=== PATIENT | female | born 1935 | race Caucasian/White ===

== ENCOUNTER 2017-06-02 09:46 | Inpatient (IN) | payer MEDICARE, OTHER, SELFPAY ==
[2017-06-02] VITALS (8 sets, daily range): BP systolic 137–155; BP diastolic 62–77; PULSE 69–84; RESP 16–22; TEMP 36.4–36.9; O2SAT 88–97; BMI 27.3; BMI 26.8
--- NOTE | 2017-06-02 10:10 | RAD_ITS ---
STUDY: X-RAY CHEST REASON FOR EXAM: Female, 82 years old. Shortness of breath. TECHNIQUE: Single AP portable view of the chest. COMPARISON: Comparison is made with prior study dated January 01, 2017. FINDINGS: EKG electrodes are seen. Mild increased markings in the right midlung suggestive of scarring. This is unchanged. There is no demonstrated pleural abnormality. Normal size heart. Ectasia of the vessels in the right side of the neck. Normal visualized pulmonary arteries. There is atherosclerotic calcification of the aortic arch with tortuosity. There are diffuse degenerative changes of the visualized thoracic spine. Stable calcifications overlying the proximal right humerus. There is no demonstrated abnormality of the visualized soft tissue structures of the upper abdomen. RAD/Chest 1 View (Portable) IMPRESSION: Stable examination. No acute abnormality is seen. Electronically Signed: Law Harper MD at 10:47 EST Tel [phone], Service support ,
--- NOTE | 2017-06-02 10:11 | EKG12_ITS ---
Test Reason : WEAKNESS Blood Pressure : / mmHG Vent. Rate : 066 BPM Atrial Rate : 066 BPM P-R Int : 154 ms QRS Dur : 076 ms QT Int : 464 ms P-R-T Axes : 021 -20 034 degrees QTc Int : 486 ms Normal sinus rhythm Normal ECG Confirmed by EARL STERN, SHADY ([id number]), senior technical editor CARLYLE ZAPATA ([id number] on 06/06/2017 3:54:53 PM Referred By: AGGIE Confirmed By:SHADY ELLIOTT MD
[2017-06-02 10:38] LABS: Absolute Lymphocyte Count 1.81 X10^3/ul (0.83-4.51); Absolute Neutrophil Count 13.4 X10^3/uL (2.0-7.7); Basophil# 0.04 X10^3/uL; Basophil% 0.2 % (0-1); Differential Indicated SCAN CRITERIA MET; Eosinophils% 6.6 % (0-5); Hematocrit 36.6 % (37-47); Hemoglobin 11.1 g/dl (12.0-15.0); Lymphocyte # 1.81 X10^3/ul (4.0); Mean Corp Hgb Conc 30.3 g/gl (32-36); Mean Corpuscular Hgb 25.8 pg (27.0-32.0); Mean Corpuscular Volume 85.1 fL (81-99); Mean Platelet Vol. 9.8 fl (6.2-12.0); Monocyte# 1.61 X10^3/uL; Monocyte% 8.9 % (0-10); Neutrophil # 13.36 X10^3/uL (2.7-7.7); POSITIVE COUNT NO; POSITIVE DIFFERENTIAL YES; POSITIVE MORPHOLOGY NO; Platelet Count 403 K/mm3 (150-450); RBC Distribution Width CV 14.8 % (11.6-14.6); RBC Distribution Width SD 45.9 fl (35.1-43.9); White Blood Count 18.1 K/mm3 (4.4-11.0)
--- NOTE | 2017-06-02 10:39 | CM.ED ---
CM referred to speak with patient re: SNF vs Home with [facility] and palliative. CM spoke with patient and daughter. Patient states that she was a resident at [facility] from 2016 - March 2017. She was then discharged to home with home health services from [facility] and states she felt she did well with [facility]. I spoke with Gavi at [facility] who confirmed that they will be able to resume care if patient should discharge to home needing home health services. I contacted , Ana Galindo, requesting discussion with family regarding palliative care. Social work will follow-up with the patient and family. Patient states she was pleased with her care at [facility] and would be agreeable to readmission there, should her condition require. Patient did state that she would not be able to self-pay for SNF placement. Care team updated. Test results are pending and care plan is undetermined at this time. CM will continue to assist with discharge needs as plan develops. Kiah BURDICK, RN HINA
[2017-06-02 10:41] LABS: Bacteria 0 SEEN /hpf (None Seen); Mucous, Urine 0 SEEN /hpf (<or=2+)
[2017-06-02 10:43] LABS: Color, Urine Yellow (Yellow); Glucose, Dipstick Normal (Normal); Ketone-Dipstick Negative (Negative); Leukocyte Esterase-Dipstick 25 /ul (Negative); Nitrite-Dipstick Negative (Negative); Occult Blood-Urine 150 /ul (Negative); Protein-Dipstick 30 mg/dl (Negative); Urine Bilirubin Dipstick Negative (Negative); Urine Clarity Sl. Cloudy (Clear); Urine Urobilinogen 1 mg/dl (Normal)
[2017-06-02 10:48] LABS: Anion Gap 10 (5-15); BUN 13 mg/dL (7-18); BUN/Creat Ratio 13.1 RATIO (10-20); Calcium,Total 8.2 mg/dL (8.5-10.1); Chloride 102 mmol/L (98-107); Creatinine, Serum 0.99 mg/dL (0.55-1.02); EST Glomerular Filtration Rate 57 mL/min (>60); Est Glom Filt Rate - Afr Amer 69 mL/min (>60); Estimated Creatinine Clearance 34.65 ml/min; Glucose 135 mg/dL (70-110); Potassium 3.9 mmol/L (3.5-5.1); Sodium Level 138 mmol/L (136-145)
[2017-06-02 10:50] LABS: Red Blood Cells-Urine 10-25 SEEN /hpf (0-5); Squamous Epithelial Cells - UA 0-5 SEEN /hpf (5-10); White Blood Cells 0-5 SEEN /hpf (0-5)
--- NOTE | 2017-06-02 11:24 | US_ITS ---
STUDY: ABDOMINAL ULTRASOUND - RIGHT UPPER QUADRANT REASON FOR VISIT: Female, 82 years old. Abdominal pain. TECHNIQUE: Ultrasound evaluation of the right upper quadrant was performed with real-time and static vazquez-scale imaging. TECHNICAL QUALITY: Adequate. COMPARISON: Comparison is made with prior examination dated January 06, 2017. FINDINGS: Liver: The liver measures 13.5 cm. There is normal echogenicity of the liver. The bile ducts are within normal limits. There is hepatic color flow. The direction of portal flow is hepatopetal. There is no demonstrated mass lesion. Gallbladder: Normal distended gallbladder. The gallbladder wall is slightly thickened and measures 3.2 mm. There is a negative sonographic Ward's sign. There is no pericholecystic fluid. There is a solitary echogenic gallstone within the gallbladder. Common Bile Duct (C.B.D.): The common bile duct measures 5.2 mm. Pancreas: There is nonvisualization of the pancreas due to overlying bowel gas. Right Kidney: Normal size of the right kidney. The right kidney measures 9.6 cm x 4.5 cm x 4.3 cm. Normal renal cortex. The right cortex measures 1.1 cm. There is no demonstrated renal mass or cyst. There is no right hydronephrosis. US/Gallbladder IMPRESSION: Cholelithiasis. Mild gallbladder wall thickening. Electronically Signed: Law Harper MD at 12:41 EST Tel [phone], Service support ,
[2017-06-02 11:49] LABS: AST(SGOT) 15 U/L (15-37); Alanine Aminotransfer ALT/SGPT 12 U/L (13-56); Alkaline Phosphatase 154 U/L (45-117); Bilirubin, Direct 0.14 mg/dL (0.00-0.30); Globulin 3.4 g/dL (2.2-4.2); Lipase 114 U/L (73-393); Protein, Total 5.4 g/dL (6.4-8.2)
--- NOTE | 2017-06-02 15:22 | CT_ITS ---
STUDY: CT BRAIN WITHOUT CONTRAST REASON FOR EXAM: Female, 82 years old. Hypoxia, general weakness, chronic cough, Afib. Hx breast cancer with right mastectomy, hypertension. Hx CVA-brain stem aneurysm RADIATION DOSAGE (If Supplied By Facility): CTDIvol = ( 44.99 ) mGy, DLP = ( 779.24 ) mGycm TECHNIQUE: Transaxial CT imaging of the brain was performed without administration of intravenous contrast material. COMPARISON: None. FINDINGS: Normal soft tissue structures. Normal calvarium. There are calcifications noted in the distal vertebral arteries. There are calcifications noted in the cavernous carotid arteries. This is consistent for atherosclerotic disease. There is mild cerebral atrophy with widening of the extra-axial spaces and ventricular dilatation. There are areas of decreased attenuation within the white matter tracts of the supratentorial brain, consistent with microvascular disease changes. Normal basal ganglia and thalami. Normal brainstem. There is mild cerebellar atrophy. There is no intracranial hemorrhage. There are no findings of an acute ischemic infarction. There is a mucous retention cyst and/or polyp of the right maxillary sinus. CT/Brain/Head without Contrast IMPRESSION: Chronic involutional changes of the brain. There are no acute findings. Electronically Signed: Tyler Christiansen MD at 16:31 EST , Service support ,
--- NOTE | 2017-06-02 15:23 | CT_ITS ---
EXAM: CT SPINE - CERVICAL WITHOUT IV REASON FOR EXAM: Female, 82 years old. Hypoxia, general weakness, chronic cough, Afib. Hx breast cancer with right mastectomy, hypertension. Hx CVA-brain stem aneurysm RADIATION DOSAGE (If Supplied By Facility): CTDIvol = ( 21.80 ) mGy, DLP = ( 439.52 ) mGycm TECHNIQUE: Multiplanar images were obtained of the cervical spine. IV contrast was not utilized. COMPARISON: None. FINDINGS: The vertebral bodies do maintain their height. The odontoid process is intact. There is no anterolisthesis or fracture. No pre-vertebral soft tissue swelling is seen. The intravertebral disc height is lost. There are scattered lymph nodes in the neck. There are degenerative changes of the osseous structures. There is bilateral facet arthropathy. There are scattered levels of foraminal stenosis. The thyroid is heterogenous. It contains nodules. This should be further evaluated with ultrasound. This can be performed as an outpatient. There are atherosclerotic vascular calcifications. CT/Spine Cervical without Contras IMPRESSION: Degenerative changes of the cervical spine. No acute abnormality of the spine. The thyroid is heterogenous. It contains nodules. This should be further evaluated with ultrasound. This can be performed as an outpatient. Electronically Signed: Tyler Christiansen MD at 16:34 EST , Service support ,
--- NOTE | 2017-06-02 15:25 | HP.PCM_ITS ---
Problem List (1) Acute hypoxic respiratory failure Status: Acute (2) Headache and neck pain Status: Acute (3) Weakness Status: Acute (4) Multiple falls Status: Chronic (5) Hypoxemia Status: Acute (6) Lung nodule seen on imaging study Status: Chronic Comment: NEEDS WORKUP (7) Anemia Status: Chronic Comment: THIS WAS NOT WORKED UP DURING HOSPITALIZATION (8) NSTEMI (non-ST elevated myocardial infarction) Status: Chronic (9) Atrial fibrillation Status: Chronic (10) HTN (hypertension) Status: Chronic (11) History of breast cancer Status: Chronic (12) Syncope Status: Chronic History of Present Illness Date of Admission: 06/02/17 Chief Complaint: Generalized weakness The patient is a 82 year old F with multiple comorbidities as listed above came to ER with generalized weakness for 2-3 weeks. As per the patient, she was recently started on new HeartMate, midodrine and she has been feeling lightheaded, weak and diaphoretic. She gets easily lightheaded on standing and walking up and gets to spontaneously resolved after a few minutes. Denies any recent fall but last time she was admitted in December 2016 for multiple falls at home. She also complained of nonspecific symptoms including headache and neck pain and right for 3 days. She has about once or twice a day labored breathing with shortness of breath and chronic cough. She denies alteration of bowel habit or lower urinary tract symptoms. In ED, she was found hypoxic, 88% on room air, tachypneic 20/min but no tachycardia. No fever. She has some nausea but denies any fever, sore throat or URI's. Basic lab work in the ER shows leukocytosis 18,000 with left shift. Alkaline phosphatase 154 ALT 12. UA is negative for pyuria and nitrite. Past Medical History Past Medical History (Chronic Problems): Chronic Problems Multiple falls (Chronic) Lung nodule seen on imaging study (Chronic) NEEDS WORKUP Anemia (Chronic) THIS WAS NOT WORKED UP DURING HOSPITALIZATION NSTEMI (non-ST elevated myocardial infarction) (Chronic) Atrial fibrillation (Chronic) HTN (hypertension) (Chronic) History of breast cancer (Chronic) Syncope (Chronic) Allergies No Known Allergies Allergy (Verified 06/02/17 09:51) Home Medications: Ambulatory Orders Medication Instructions Recorded Aspirin [Aspirin, Baby] 81 mg PO DAILY@0800 12/22/16 Gabapentin [Neurontin] 300 mg PO TID 12/22/16 Metoprolol Tartrate 75 mg PO BID 12/22/16 Atorvastatin Calcium 40 mg PO QHS 01/06/17 Ensure Enlive 120 ml PO 4X/DAY 01/10/17 Ergocalciferol [Vitamin D] 50,000 unit PO Q7D capsule 01/10/17 Amlodipine [Norvasc] 5 mg PO DAILY 06/02/17 Naproxen Sodium [Aleve] 220 mg PO Q12H PRN PRN 06/02/17 Surgical History: mastectomy Smoking Status: Never smoker - *Family History Sibling History Items: - - brother with cabg Paternal History Items: - - mi Maternal History Items: - - cerebral hem Review of Systems Constitutional: Reports: Malaise, Weakness, Fatigue. Denies: Fever Eyes: Denies: Blurred vision, Double vision HEENT: Denies: Sinus Congestion, Sinus Drainage Cardiovascular: Denies: Chest Pain, Palpitations Respiratory: Reports: Cough, Shortness of breath upon exertion. Denies: Shortness of breath at rest, Sputum production Gastrointestinal: Denies: Abdominal Pain, Constipation, Nausea, Vomiting Genitourinary: Denies: Dysuria Musculoskeletal: Denies: Joint Pain, Joint Tenderness Skin: Denies: Rash, Wounds Neurological: Denies: Numbness, Tingling, Focal weakness Psychiatric: Denies: Anxiety, Depression, Homicidal Ideations, Suicidal Ideations Hematologic/ Lymphatic: Denies: Easy Bruising, Easy Bleeding VTE Information - Inpt Only VTE Present on Admission: No VTE Mechan Device Prophylaxis: SCD's VTE Pharm Prophylaxis ordered?: Yes Patient Problems: Active and Suspected Problems Acute hypoxic respiratory failure (Acute) Headache and neck pain (Acute) - Physical Exam General: Alert, Oriented x3, Cooperative HEENT: Atraumatic, PERRLA, EOMI, Normocephalic Oral: Dry Mucosa Neck: Supple, No JVD, Negative Carotid Bruits Lungs: No rhonchi, No wheeze, No rales, Diminished Cardiovascular: Regular rate, Regular Rhythm, Normal S1, Normal S2, No murmurs Abdomen: Bowel Sounds Present, Soft, Non Tender, Non-Distended Extremities: Capillary Refill Less than 3 Seconds, Edema Skin: No rashes, No breakdown Musculoskeletal: No Tenderness to Palpation of Joints or Extremities, Arthritic Changes, Muscle Wasting Neurological: Cranial nerves II-XII grossly intact, Neuro grossly intact, - - No neck rigidity. No sternomastoid or neck muscle tenderness Psych/Mental Status: Normal Affect, Appropriate Vital Signs Temp Pulse Resp BP Pulse Ox 98.0 F 74 22 H 155/69 H 97 06/02/17 09:47 06/02/17 14:17 06/02/17 14:17 06/02/17 14:17 06/02/17 14:17 Assessment/Plan Active and Suspected Problems Acute hypoxic respiratory failure (Acute) Headache and neck pain (Acute) The patient is a 82 year old F with multiple comorbidities as listed above came to ER with generalized weakness for 2-3 weeks. As per the patient, she was recently started on new HeartMate, midodrine and she has been feeling lightheaded, weak and diaphoretic. She gets easily lightheaded on standing and walking up and gets to spontaneously resolved after a few minutes. Denies any recent fall but last time she was admitted in December 2016 for multiple falls at home. She also complained of nonspecific symptoms including headache and neck pain and right for 3 days. She has about once or twice a day labored breathing with shortness of breath and chronic cough. She denies alteration of bowel habit or lower urinary tract symptoms. In ED, she was found hypoxic, 88% on room air, tachypneic 20/min but no tachycardia. No fever. She has some nausea but denies any fever, sore throat or URI's. Basic lab work in the ER shows leukocytosis 18,000 with left shift. Alkaline phosphatase 154 ALT 12. UA is negative for pyuria and nitrite. 1. Acute hypoxic respiratory failure, etiology unclear possible to viral syndrome/acute bronchitis: [facility]. The patient is a high risk of DVT/PE and has not been moving much at home. CT angiogram of chest ordered to rule out PE. Incentive spirometry, bronchodilator and supportive treatment. Lactic acid ordered. During last admission it was also documented that patient had hypoxia with source finding but it was resolved. 2. SIRS (leukocytosis, tachypnea and hypoxia) probably due to viral flulike syndrome: Supportive treatment. Respiratory panel ordered. 3. Headache and neck pain and generalized weakness: Patient does not have neck rigidity. Low suspicion for meningitis. CT head with C-spine ordered. Patient denies any history of migraine or chronic headache. PT and OT ordered. 4. Other chronic comorbidities include recent history of recurrent fall, non- STEMI with coronary artery disease, right lower lung mass, paroxysmal A. fib, mild aortic aneurysm, and hypertension.: Multiple comorbidities complicates the present care. Home medication reconciliation done. Code Visit Inpatient E&M: 01313 Init Hosp L3
--- NOTE | 2017-06-02 15:32 | CT_ITS ---
STUDY: CTA CHEST REASON FOR EXAM: Female, 82 years old. Hypoxia, general weakness, chronic cough, Afib. Hx breast cancer with right mastectomy, hypertension. Hx CVA-brain stem aneurysm RADIATION DOSAGE (If Supplied By Facility): CTDIvol = ( 15.96 ) mGy, DLP = ( 507.37 ) mGycm TECHNIQUE: The examination was performed with the intravenous administration of 75mL ml of Isovue 370 contrast material. Post-processing of the angiographic images was performed, with multiplanar reformation and 3D reconstruction. Individualized dose optimization techniques were used for this CT. COMPARISON: January 06, 2017 FINDINGS: There is no pneumothorax. There is a right 3.8 mm right middle lobe nodule. There is a right 14 mm lower lobe nodule. Stable lingular nodule. There are small bilateral pleural effusions. There are calcifications of the coronary arteries. 45 mm aneurysmal dilation of the ascending thoracic aorta.Right mastectomy changes. Normal mediastinum. Normal hilar regions. Normal pulmonary arteries. There is atherosclerotic calcification of the aortic arch with tortuosity and elongation of the aortic arch and descending thoracic aorta. There are multi-level degenerative changes of the thoracic spine. There is no demonstrated abnormality of the visualized upper abdomen. CT/CTA Chest W/WO Contrast IMPRESSION: No demonstrated pulmonary embolism or arterial dissection. Small pleural effusions. Stable pulmonary nodules. 45 mm aneurysmal dilation of the ascending thoracic aorta. Electronically Signed: Tyler Christiansen MD at 16:40 EST , Service support ,
--- NOTE | 2017-06-02 16:21 | ED.VISSUMM ---
- ER Visit Summary Date of Service: 06/02/17 Chief Complaint: Weakness History of Present Illness: The patient is a [address] Hearn. She reports that she has had weakness for quite some time. She was in [facility] from December through . States that while she was there she was placed on amiodarone. States that with this she has had generalized weakness. She stopped this medication 3 weeks ago. She reports that she is not having any chest pain or diaphoresis anymore. However, she continues to experience generalized weakness. Patient points of a chronic cough that is unchanged. She does report that she is short of breath once in a while. She denies any fever, chills, abdominal pain, vomiting, diarrhea, or other complaints. Physical Examination: Vitals: Stable. Afebrile. General: Well-nourished and well-developed. Head: Normocephalic atraumatic. Neck: Supple, no lymphadenopathy. No JVD. Nontender. Cardiovascular: Regular rate and rhythm. 2 out of 6 systolic murmur. Respiratory: No respiratory distress. Clear to auscultation bilaterally. Abdominal: Soft, mild right upper quadrant tenderness to palpation, nondistended, normal bowel sounds. No guarding, rebound, or peritoneal signs. Back: Nontender. Extremities: Nontender, no edema. Skin: Normal color, no rash. Neurologic: Alert and oriented ?3. Cranial nerves II through XII are intact. Normal strength and sensation. Psych: Normal affect. Test Results: EKG is sinus at 66 with no acute changes. Is unchanged from last December. Initial troponin is 0.04. UA is normal. LFTs marked for an alk phos of 154, ALT of 12. Her alk phos was 317 431 last December. Her lipase is normal. Chest x-ray shows chronic changes. Right upper quadrant ultrasound shows mild wall thickening at 3.2 mm with no fluid, no Ward's sign, and a normal common bile duct is 5.2 mm. There is one solitary gallstone. Emergency Department Course and Treatment: While in the emergency department the patient was resting in bed and her pulse ox decreased to 88% with a good waveform. At this time I do not have a good explanation for her leukocytosis. She is also hypoxic. She will be admitted to the hospital for further relation and treatment. Treatment Plan: Patient was discussed with Dr. Rodarte and will be admitted. Disposition: Admitted in stable condition. Impression: 1. Generalized weakness. 2. Leukocytosis. 3. Hypoxia. This note was generated with [employer] dictation software. It may contain incorrect words, spelling, and punctuation that were not noted in review of the chart prior to signing ED Disposition - Plan for ED Patient: Disposition: Acute Care Hospital [facility] Chief Complaint: Weakness
--- NOTE | 2017-06-02 16:24 | ED.DCSUM_ITS ---
- ER Visit Summary Date of Service: 06/02/17 Chief Complaint: Weakness History of Present Illness: The patient is a [address] Hearn. She reports that she has had weakness for quite some time. She was in [facility] from December through . States that while she was there she was placed on amiodarone. States that with this she has had generalized weakness. She stopped this medication 3 weeks ago. She reports that she is not having any chest pain or diaphoresis anymore. However, she continues to experience generalized weakness. Patient points of a chronic cough that is unchanged. She does report that she is short of breath once in a while. She denies any fever, chills, abdominal pain, vomiting, diarrhea, or other complaints. Physical Examination: Vitals: Stable. Afebrile. General: Well-nourished and well-developed. Head: Normocephalic atraumatic. Neck: Supple, no lymphadenopathy. No JVD. Nontender. Cardiovascular: Regular rate and rhythm. 2 out of 6 systolic murmur. Respiratory: No respiratory distress. Clear to auscultation bilaterally. Abdominal: Soft, mild right upper quadrant tenderness to palpation, nondistended , normal bowel sounds. No guarding, rebound, or peritoneal signs. Back: Nontender. Extremities: Nontender, no edema. Skin: Normal color, no rash. Neurologic: Alert and oriented ?3. Cranial nerves II through XII are intact. Normal strength and sensation. Psych: Normal affect. Test Results: EKG is sinus at 66 with no acute changes. Is unchanged from last December. Initial troponin is 0.04. UA is normal. LFTs marked for an alk phos of 154, ALT of 12. Her alk phos was 317 431 last December. Her lipase is normal. Chest x-ray shows chronic changes. Right upper quadrant ultrasound shows mild wall thickening at 3.2 mm with no fluid, no Ward's sign, and a normal common bile duct is 5.2 mm. There is one solitary gallstone. Emergency Department Course and Treatment: While in the emergency department the patient was resting in bed and her pulse ox decreased to 88% with a good waveform. At this time I do not have a good explanation for her leukocytosis. She is also hypoxic. She will be admitted to the hospital for further relation and treatment. Treatment Plan: Patient was discussed with Dr. Rodarte and will be admitted. Disposition: Admitted in stable condition. Impression: 1. Generalized weakness. 2. Leukocytosis. 3. Hypoxia. This note was generated with [employer] dictation software. It may contain incorrect words, spelling, and punctuation that were not noted in review of the chart prior to signing ED Disposition - Plan for ED Patient: Disposition: Acute Care Hospital [facility] Chief Complaint: Weakness
[2017-06-02] MEDS: Enoxaparin 40 MG/0.4 ML Syringe SC (16:26)
[2017-06-02] MEDS: Piperacil/Tazobactam 3.375 GM/50 ML ML IV ×2 (16:26→22:42)
[2017-06-02] MEDS: Acetaminophen 325 MG Tablet 650 MG PO (16:29)
[2017-06-02] MEDS: Gabapentin 300 MG Capsule PO (17:52)
[2017-06-02 18:58] LABS: M R Staph aureus DNA By PCR Negative (Negative); Probe Check PASS; Specimen Processing Control PASS
[2017-06-02] MEDS: Metoprolol Tartrate 25 MG Tablet 75 MG PO (19:45)
[2017-06-02] MEDS: Atorvastatin Calcium 40 MG Tablet PO (19:45)
[2017-06-02 20:44] LABS: Reflex Lactate? Y
[2017-06-02 22:26] LABS: Lactic Acid 1.8 mmol/L (0.4-2.0)
[2017-06-03] VITALS (11 sets, daily range): BP systolic 116–135; BP diastolic 57–75; PULSE 69–76; RESP 18–19; TEMP 36.6–36.9; O2SAT 89–98
[2017-06-03] MEDS: Piperacil/Tazobactam 3.375 GM/50 ML ML IV ×2 (05:39→14:01)
--- NOTE | 2017-06-03 07:50 | PCM.PN.HOSP ---
Patient Problems: Active and Suspected Problems Acute hypoxic respiratory failure (Acute) Headache and neck pain (Acute) Subjective: Patient notes vague history of weakness following administration of new cardiac medication several weeks prior but also states that she was in [facility] for ongoing weakness and debilitation and had improved until discharge to home with since then progressively mild decline. She notes additionally ongoing epigastric region discomfort occasionally. She states that she had evaluation of gallbladder prior and recommendation for removal however following workup she was noted to have some form of brain aneurysm and was told she was not a candidate for operative intervention but patient not interested in cholecystostomy tube. Patient denies fevers, chills, nausea, emesis, chest pain or worsened or recurrent dyspnea. Objective: Physical Examination: General: awake, alert, oriented x 3 and cooperative, seated upright in bed in no apparent distress, mildly irritable. Skin: normal color, turgor, no icterus, cyanosis. HEENT: AT/NC, EOMI, PERRLA, MMM. Lungs: Diminished bases, mild effort, no rales, ronchi or wheezing. Heart: Regular rate and rhythm; no gallop, rub audible, SM. Abdomen: soft, unable to elicit any TTP, no RUQ TTP, ND, normal BS. Extremities: no cyanosis, clubbing, or edema. Neurological: patient awake, alert, oriented x 3; cognitive function intact; pupils equally reactive to light and accomodation; cranial nerves II-XII grossly normal, moving all 4 extremities, no focal deficits, strength moderately globally decreased. Psychiatric: affect appears mildly irritable, no acute evidence of depressive or anxiety feelings. Vitals/I&O's: Vital Signs Temp Pulse Resp BP Pulse Ox 97.8 F 70 19 H 116/65 93 06/03/17 02:42 06/03/17 02:42 06/03/17 02:42 06/03/17 02:42 06/03/17 02:42 Oxygen Flow Rate 2 Oxygen Delivery Method Room Air Weight: 146 lb 9.613 oz Body Mass Index (BMI) 26.8 Intake and Output for Last 24 Hours 06/01/17 06/02/17 06/03/17 23:59 23:59 23:59 Intake Total 393 / 393 644 / 644 Output Total 250 / 250 Balance 143 / 143 644 / 644 Laboratory Results 06/02/17 16:34: Lactic Acid 2.0 06/02/17 16:45: MRSA (PCR) Negative 06/02/17 21:54: Lactic Acid 1.8 06/03/17 07:12: WBC Pending, RBC Pending, Hgb Pending, Hct Pending, MCV Pending, MCH Pending, MCHC Pending, RDW Pending, RDW Differential Pending, Plt Count Pending, Neut % (Auto) Pending, Absolute Neuts (auto) Pending, Total Counted Pending 06/03/17 07:12: Sodium Pending, Potassium Pending, Chloride Pending, Carbon Dioxide Pending, Anion Gap Pending, BUN Pending, Creatinine Pending, Est GFR (MDRD) Af Amer Pending, Est GFR (MDRD) Non-Af Pending, BUN/Creatinine Ratio Pending, Glucose Pending, Calcium Pending Current Medications Acetaminophen (Tylenol) 650 mg PO Q4H PRN PRN PRN Reason: fEVER/MILD PAIN Last Admin: 06/02/17 16:29 Dose: 650 mg Al Hydroxide/Mg Hydroxide (Mylanta Ii) 30 ml PO Q6H PRN PRN PRN Reason: Gastric burning Amlodipine Besylate (Norvasc) 5 mg PO DAILY [facility] Aspirin (Aspirin, Baby) 81 mg PO DAILY@0800 [facility] Atorvastatin Calcium (Lipitor) 40 mg PO QHS [facility] Last Admin: 06/02/17 19:45 Dose: 40 mg Enoxaparin Sodium (Lovenox) 40 mg SC DAILY@1000 [facility] Gabapentin (Neurontin) 300 mg PO TIDCM [facility] Last Admin: 06/02/17 17:52 Dose: 300 mg Piperacillin Sod/Tazobactam Sod (Zosyn) 3.375 gm in 50 mls @ 12.5 mls/hr IV Q8 [facility] Magnesium Hydroxide (Milk Of Magnesia) 30 ml PO DAILY PRN PRN PRN Reason: Constipation Metoprolol Tartrate (Lopressor (Beta Murray)) 75 mg PO BID [facility] Last Admin: 06/02/17 19:45 Dose: 75 mg Ondansetron HCl (Zofran) 4 mg IV Q8H PRN PRN PRN Reason: NAUSEA Oxycodone HCl (Oxyir) 5 mg PO Q4H PRN PRN PRN Reason: SEVERE PAIN (6-10/10) Promethazine HCl (Phenergan (Ll)) 12.5 mg IV Q6H PRN PRN PRN Reason: NAUSEA/VOMITING Sodium Chloride () 5 - 30 ml IV UD PRN PRN Reason: SALINE FLUSH Assessment/Plan Active and Suspected Problems Acute hypoxic respiratory failure (Acute) Headache and neck pain (Acute) The patient is an 82 y/o F w/ PMHx: CAD s/p NSTEMI, History of Breast CA, Chronic Atrial Fibrillation, HTN, HLD, Chronic normocytic anemia (9-10 baseline) who presents to the [facility] ED on 06/02/17 with generalized weakness x 2-3 weeks. (1) Serial Falls, Weakness, Debility: Unclear specific etiology, leukocytosis upon admission, evaluation ongoing for possible etiology, continue work-up, fall precautions, CT head and CT neck without acute findings, PT, OT, CM for discharge planning. (2) Leukocytosis, Unclear Etiology: Admission CBC w/ WBC 18.1 with L shift, afebrile upon presentation, UA not marked, UCx, Bld Cx pending, CXR and follow CTPA secondary to mild hypoxia in the ED unremarkable, only findings was GB US w/ mild gallbladder wall thickening and cholelithiasis. Will trend CBC, pending Surgery evaluation to assure not possible etiology, maintain on zosyn, NPO status, repeat hepatic profile also pending until surgery evaluation. (3) Cholelithiasis: Pending Surgery evaluation to assure not possible etiology for leukocytosis and weakness complaint, maintain on zosyn, NPO status, repeat hepatic profile also pending until surgery evaluation. She notes she is not a candidate secondary to prior ? brain aneurysm noted at OSH evaluation. (4) Hyperglycemia: Admission glucose and prior noted to be serially elevated, HgBA1c pending. (5) Hypoxia, DOES NOT HAVE Acute Hypoxic Respiratory Failure: Noted to have mild hypoxic in the ED, noted during prior admission as well but resolved with O2 needs, will maintain on oxygen with wean to room air as able, ECHO 12/22/16 w/ EF 65%, stage I diastolic dysfunction, mild MV insufficiency, trivial TV insufficiency, RVSP 25 mmHg, mild aortic stenosis, stable appearing since echo prior to this 2012. Unclear etiology, initiate PRN albuterol, duonebs, may benefit from outpatient PFTs. CXR, CTPA without acute etiology. (6) Right Neck Strain: CT Neck without acute finding, no rigidity, continue fall precautions, PT, OT, compress as needed, PRN tylenol. (7) Chronic Normocytic Anemia: Unclear specific etiology, admission Hgb 11.1, baseline 9-10, 2/2/ Hgb 9.7, will obtain guiac, Fe panel, ferritin obtained consistent with Fe deficiency anemia. Add Fe supplementation. (8) Incidental Ascending Thoracic Aortic Aneurysmal Dilation: CTPA obtained upon presentation, 45 mm aneurysmal dilation ascending thoracic aorta noted, monitor outpatient. (9) Chronic Atrial Fibrillation: Maintain on asa, metoprolol but decreased given fall history w/ unclear usage of possible midodrine w/ hold parameters. Given age and fall history not appropriate anticoagulation candidate. (10) CAD: Hx NSTEMI, maintain on asa, statin, metoprolol but decreased w/ hold parameters. (11) Hypertension: Continue home regimen including Norvasc, metoprolol but decreased with hold parameters, PRN hydralazine. (12) Hyperlipidemia: Continue home statin regimen. (13) Known Pulmonary Nodules: CTPA w/ 3.8 mm right middle lobe nodule, right 14 mm lower lobe nonpalpable, stable lingular nodule. Continue to follow outpatient. (14) DVT Prophylaxis: SCDs, holding lovenox until surgery evaluation. (15) CODE status: Discussed CODE status at length including difference between FULL code, DNR-CCA and DNR-CC status. Following discussions about the differences in these status, she notes she is a DNR-CCA, no intubation status. She notes she has living will in place. She notes several daughters are aware of her admission and had already been updated. Advanced Care Planning Face to Face Time: 18 minutes. Code Visit Inpatient E&M: 66372 Subs Hosp L3 Procedures: 08215 Advncd Care Plan 30 Min
--- NOTE | 2017-06-03 07:58 | NURSING ---
O2 1L NC PLACED ON PT
[2017-06-03 07:59] LABS: Absolute Lymphocyte Count 2.09 X10^3/ul (0.83-4.51); Absolute Neutrophil Count 13.1 X10^3/uL (2.0-7.7); Basophil# 0.05 X10^3/uL; Basophil% 0.3 % (0-1); Eosinophil# 0.84 X10^3/uL; Eosinophils% 4.8 % (0-5); Hematocrit 31.3 % (37-47); Hemoglobin 9.7 g/dl (12.0-15.0); Lymphocyte # 2.09 X10^3/ul (4.0); Lymphocyte % 11.9 % (19-41); Mean Corpuscular Hgb 26.1 pg (27.0-32.0); Mean Corpuscular Volume 84.4 fL (81-99); Mean Platelet Vol. 10.1 fl (6.2-12.0); Monocyte# 1.44 X10^3/uL; Monocyte% 8.2 % (0-10); Neutrophil # 13.09 X10^3/uL (2.7-7.7); Neutrophil % 74.4 % (47-70); Platelet Count 417 K/mm3 (150-450); RBC Distribution Width CV 14.8 % (11.6-14.6); RBC Distribution Width SD 44.1 fl (35.1-43.9); Red Blood Count 3.71 M/mm3 (4.2-5.4); White Blood Count 17.6 K/mm3 (4.4-11.0)
[2017-06-03 08:05] LABS: POSITIVE COUNT NO; POSITIVE DIFFERENTIAL NO; POSITIVE MORPHOLOGY NO
[2017-06-03] MEDS: Acetaminophen 325 MG Tablet 650 MG PO ×2 (08:09→14:09)
--- NOTE | 2017-06-03 08:09 | PN_ITS ---
Patient Problems: Active and Suspected Problems Acute hypoxic respiratory failure (Acute) Headache and neck pain (Acute) Subjective: Patient notes vague history of weakness following administration of new cardiac medication several weeks prior but also states that she was in [facility] for ongoing weakness and debilitation and had improved until discharge to home with since then progressively mild decline. She notes additionally ongoing epigastric region discomfort occasionally. She states that she had evaluation of gallbladder prior and recommendation for removal however following workup she was noted to have some form of brain aneurysm and was told she was not a candidate for operative intervention but patient not interested in cholecystostomy tube. Patient denies fevers, chills, nausea, emesis, chest pain or worsened or recurrent dyspnea. Objective: Physical Examination: General: awake, alert, oriented x 3 and cooperative, seated upright in bed in no apparent distress, mildly irritable. Skin: normal color, turgor, no icterus, cyanosis. HEENT: AT/NC, EOMI, PERRLA, MMM. Lungs: Diminished bases, mild effort, no rales, ronchi or wheezing. Heart: Regular rate and rhythm; no gallop, rub audible, SM. Abdomen: soft, unable to elicit any TTP, no RUQ TTP, ND, normal BS. Extremities: no cyanosis, clubbing, or edema. Neurological: patient awake, alert, oriented x 3; cognitive function intact; pupils equally reactive to light and accomodation; cranial nerves II-XII grossly normal, moving all 4 extremities, no focal deficits, strength moderately globally decreased. Psychiatric: affect appears mildly irritable, no acute evidence of depressive or anxiety feelings. Vitals/I&O's: Vital Signs Temp Pulse Resp BP Pulse Ox 97.8 F 70 19 H 116/65 93 06/03/17 02:42 06/03/17 02:42 06/03/17 02:42 06/03/17 02:42 06/03/17 02:42 Oxygen Flow Rate 2 Oxygen Delivery Method Room Air Weight: 146 lb 9.613 oz Body Mass Index (BMI) 26.8 Intake and Output for Last 24 Hours 06/01/17 06/02/17 06/03/17 23:59 23:59 23:59 Intake Total 393 / 393 644 / 644 Output Total 250 / 250 Balance 143 / 143 644 / 644 Laboratory Results 06/02/17 16:34: Lactic Acid 2.0 06/02/17 16:45: MRSA (PCR) Negative 06/02/17 21:54: Lactic Acid 1.8 06/03/17 07:12: WBC Pending, RBC Pending, Hgb Pending, Hct Pending, MCV Pending , MCH Pending, MCHC Pending, RDW Pending, RDW Differential Pending, Plt Count Pending, Neut % (Auto) Pending, Absolute Neuts (auto) Pending, Total Counted Pending 06/03/17 07:12: Sodium Pending, Potassium Pending, Chloride Pending, Carbon Dioxide Pending, Anion Gap Pending, BUN Pending, Creatinine Pending, Est GFR ( MDRD) Af Amer Pending, Est GFR (MDRD) Non-Af Pending, BUN/Creatinine Ratio Pending, Glucose Pending, Calcium Pending Current Medications Acetaminophen (Tylenol) 650 mg PO Q4H PRN PRN PRN Reason: fEVER/MILD PAIN Last Admin: 06/02/17 16:29 Dose: 650 mg Al Hydroxide/Mg Hydroxide (Mylanta Ii) 30 ml PO Q6H PRN PRN PRN Reason: Gastric burning Amlodipine Besylate (Norvasc) 5 mg PO DAILY [facility] Aspirin (Aspirin, Baby) 81 mg PO DAILY@0800 [facility] Atorvastatin Calcium (Lipitor) 40 mg PO QHS [facility] Last Admin: 06/02/17 19:45 Dose: 40 mg Enoxaparin Sodium (Lovenox) 40 mg SC DAILY@1000 [facility] Gabapentin (Neurontin) 300 mg PO TIDCM [facility] Last Admin: 06/02/17 17:52 Dose: 300 mg Piperacillin Sod/Tazobactam Sod (Zosyn) 3.375 gm in 50 mls @ 12.5 mls/hr IV Q8 [facility] Magnesium Hydroxide (Milk Of Magnesia) 30 ml PO DAILY PRN PRN PRN Reason: Constipation Metoprolol Tartrate (Lopressor (Beta Murray)) 75 mg PO BID [facility] Last Admin: 06/02/17 19:45 Dose: 75 mg Ondansetron HCl (Zofran) 4 mg IV Q8H PRN PRN PRN Reason: NAUSEA Oxycodone HCl (Oxyir) 5 mg PO Q4H PRN PRN PRN Reason: SEVERE PAIN (6-10/10) Promethazine HCl (Phenergan (Ll)) 12.5 mg IV Q6H PRN PRN PRN Reason: NAUSEA/VOMITING Sodium Chloride () 5 - 30 ml IV UD PRN PRN Reason: SALINE FLUSH Assessment/Plan Active and Suspected Problems Acute hypoxic respiratory failure (Acute) Headache and neck pain (Acute) The patient is an 82 y/o F w/ PMHx: CAD s/p NSTEMI, History of Breast CA, Chronic Atrial Fibrillation, HTN, HLD, Chronic normocytic anemia (9-10 baseline ) who presents to the [facility] ED on 06/02/17 with generalized weakness x 2-3 weeks. (1) Serial Falls, Weakness, Debility: Unclear specific etiology, leukocytosis upon admission, evaluation ongoing for possible etiology, continue work-up, fall precautions, CT head and CT neck without acute findings, PT, OT, CM for discharge planning. (2) Leukocytosis, Unclear Etiology: Admission CBC w/ WBC 18.1 with L shift, afebrile upon presentation, UA not marked, UCx, Bld Cx pending, CXR and follow CTPA secondary to mild hypoxia in the ED unremarkable, only findings was GB US w / mild gallbladder wall thickening and cholelithiasis. Will trend CBC, pending Surgery evaluation to assure not possible etiology, maintain on zosyn, NPO status, repeat hepatic profile also pending until surgery evaluation. (3) Cholelithiasis: Pending Surgery evaluation to assure not possible etiology for leukocytosis and weakness complaint, maintain on zosyn, NPO status, repeat hepatic profile also pending until surgery evaluation. She notes she is not a candidate secondary to prior ? brain aneurysm noted at OSH evaluation. (4) Hyperglycemia: Admission glucose and prior noted to be serially elevated, HgBA1c pending. (5) Hypoxia, DOES NOT HAVE Acute Hypoxic Respiratory Failure: Noted to have mild hypoxic in the ED, noted during prior admission as well but resolved with O2 needs, will maintain on oxygen with wean to room air as able, ECHO 12/22/16 w / EF 65%, stage I diastolic dysfunction, mild MV insufficiency, trivial TV insufficiency, RVSP 25 mmHg, mild aortic stenosis, stable appearing since echo prior to this 2012. Unclear etiology, initiate PRN albuterol, duonebs, may benefit from outpatient PFTs. CXR, CTPA without acute etiology. (6) Right Neck Strain: CT Neck without acute finding, no rigidity, continue fall precautions, PT, OT, compress as needed, PRN tylenol. (7) Chronic Normocytic Anemia: Unclear specific etiology, admission Hgb 11.1, baseline 9-10, 2/2/ Hgb 9.7, will obtain guiac, Fe panel, ferritin obtained consistent with Fe deficiency anemia. Add Fe supplementation. (8) Incidental Ascending Thoracic Aortic Aneurysmal Dilation: CTPA obtained upon presentation, 45 mm aneurysmal dilation ascending thoracic aorta noted, monitor outpatient. (9) Chronic Atrial Fibrillation: Maintain on asa, metoprolol but decreased given fall history w/ unclear usage of possible midodrine w/ hold parameters. Given age and fall history not appropriate anticoagulation candidate. (10) CAD: Hx NSTEMI, maintain on asa, statin, metoprolol but decreased w/ hold parameters. (11) Hypertension: Continue home regimen including Norvasc, metoprolol but decreased with hold parameters, PRN hydralazine. (12) Hyperlipidemia: Continue home statin regimen. (13) Known Pulmonary Nodules: CTPA w/ 3.8 mm right middle lobe nodule, right 14 mm lower lobe nonpalpable, stable lingular nodule. Continue to follow outpatient. (14) DVT Prophylaxis: SCDs, holding lovenox until surgery evaluation. (15) CODE status: Discussed CODE status at length including difference between FULL code, DNR-CCA and DNR-CC status. Following discussions about the differences in these status, she notes she is a DNR-CCA, no intubation status. She notes she has living will in place. She notes several daughters are aware of her admission and had already been updated. Advanced Care Planning Face to Face Time: 18 minutes. Code Visit Inpatient E&M: 36057 Subs Hosp L3 Procedures: 26721 Advncd Care Plan 30 Min
[2017-06-03 08:10] LABS: BUN 12 mg/dL (7-18); Creatinine, Serum 0.94 mg/dL (0.55-1.02); EST Glomerular Filtration Rate 60 mL/min (>60); Estimated Creatinine Clearance 36.49 ml/min; Glucose 99 mg/dL (70-110)
[2017-06-03] MEDS: Aspirin 81 MG TAB.CHEW PO (08:10)
[2017-06-03] MEDS: Gabapentin 300 MG Capsule PO ×3 (08:10→17:51)
[2017-06-03 08:11] LABS: Anion Gap 10 (5-15); BUN/Creat Ratio 12.7 RATIO (10-20); Calcium,Total 7.9 mg/dL (8.5-10.1); Chloride 102 mmol/L (98-107); Est Glom Filt Rate - Afr Amer 73 mL/min (>60); Potassium 3.8 mmol/L (3.5-5.1); Sodium Level 138 mmol/L (136-145)
[2017-06-03 08:27] LABS: AST(SGOT) 11 U/L (15-37); Alanine Aminotransfer ALT/SGPT 10 U/L (13-56); Albumin, Serum 1.6 g/dL (3.2-5.0); Alkaline Phosphatase 134 U/L (45-117); Bilirubin, Direct 0.14 mg/dL (0.00-0.30); Magnesium 1.8 mg/dL (1.6-2.6); Protein, Total 4.6 g/dL (6.4-8.2); Thyroid Stim Hormone (TSH) 3.21 uIU/mL (0.358-3.74)
--- NOTE | 2017-06-03 08:29 | NM_ITS ---
CLINICAL: 82-year-old female with reported history of right upper quadrant abdominal pain. RADIONUCLIDE HEPATOBILIARY SCINTIGRAPHY COMPARISON: Abdominal ultrasound report 06/02/2017 FINDINGS: Following the intravenous administration of 5.7 mCi of 99m Tc Mebrofenin, hepatobiliary images reveal: 1. Relatively prompt and homogeneous radiopharmaceutical concentration is noted by a normal sized liver. No parenchymal defects are identified. 2. Gallbladder activity is identified at 28-29 minutes post radiopharmaceutical administration. 3. Small intestinal tract is observed at 13 minutes following tracer injection. 4. Washout of the radiopharmaceutical by the hepatic parenchyma appears qualitatively normal. 5. There is demonstrated duodenal-gastric reflux initiating at approximately 30 minutes following tracer injection. NM/Hepatobilliary Img w/Pharm Int IMPRESSION: 1. Visualization of the gallbladder within 60 minutes post radiopharmaceutical administration excludes acute cholecystitis with 97% certitude. (Wei et al, Nucl Med Evette Jenni Press pg. 35, 1981). 2. There is scintigraphic evidence of duodenal-gastric reflux as described above. Electronically Signed: Rojelio De León DO at 11:54 EST Tel , Service support ,
[2017-06-03 08:47] LABS: Ferritin 390 ng/mL (8-252); Iron 17 ug/dL (50-170); Iron Binding Capacity,Total 192 ug/dL (250-450); PERCENT IRON SATURATION 8.9 % (15.0-55.0)
[2017-06-03 09:02] LABS: Hemoglobin A1c 6.4 % (4.2-6.3)
--- NOTE | 2017-06-03 09:09 | PCM.CONS.GEN ---
Reason for Consult Date of Consultation: 06/03/17 History of Present Illness: The patient is a 82 year old F for generalized weakness and leukocytosis. Patient did have an ultrasound which showed a mildly thickened gallbladder wall at 3.2 mm along with gallstones, no pericholecystic fluid, no Ward sign. Patient's urine also did not look consistent with a UTI and the chest CTA was fairly normal. Patient states she has had weakness for several months and had several falls in that amount of time. During this time she does not state she has had any abdominal pain however she does states she has had a decreased appetite and she occasionally has some upset stomach which sounds like reflux symptoms in the epigastric up her esophagus. Patient states that in the past she was supposed to get her gallbladder removed at [facility] due to gallstones however she has a brain aneurysm at her brainstem and they thought it was too risky to do the surgery and they also felt was too risky to try to remove were clipped the aneurysm as well. She currently states she is not interested in any surgery for her gallbladder. And again currently denies right upper quadrant pain after eating or nausea and vomiting, but she does state occasionally she will have nausea prior to eating. Past Medical History Past Medical History (Chronic Problems): Chronic Problems Multiple falls (Chronic) Lung nodule seen on imaging study (Chronic) NEEDS WORKUP Anemia (Chronic) THIS WAS NOT WORKED UP DURING HOSPITALIZATION NSTEMI (non-ST elevated myocardial infarction) (Chronic) Atrial fibrillation (Chronic) HTN (hypertension) (Chronic) History of breast cancer (Chronic) Syncope (Chronic) Allergies No Known Allergies Allergy (Verified 06/02/17 09:51) Home Medications: Ambulatory Orders Medication Instructions Recorded Aspirin [Aspirin, Baby] 81 mg PO DAILY@0800 12/22/16 Gabapentin [Neurontin] 300 mg PO TID 12/22/16 Metoprolol Tartrate 75 mg PO BID 12/22/16 Atorvastatin Calcium 40 mg PO QHS 01/06/17 Amlodipine [Norvasc] 5 mg PO DAILY 06/02/17 Naproxen Sodium [Aleve] 220 mg PO Q12H PRN PRN 06/02/17 Surgical History: mastectomy Psychiatric History: No pertinent psych hx 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 Denies: Chills, Fever HEENT: Denies: Difficulty Swallowing Cardiovascular: Denies: Chest Pain Respiratory: Denies: Cough, Shortness of breath at rest Gastrointestinal: Denies: Abdominal Pain, Constipation, Diarrhea, Vomiting Genitourinary: Denies: Dysuria Skin: Denies: Rash Psychiatric: Denies: Anxiety, Depression Hematologic/ Lymphatic: Denies: Easy Bruising Patient Problems: Active and Suspected Problems Acute hypoxic respiratory failure (Acute) Headache and neck pain (Acute) Leukocytosis (Acute) - Physical Exam Vital Signs Temp Pulse Resp BP Pulse Ox 98.5 F 76 18 126/75 H 89 06/03/17 07:57 06/03/17 07:57 06/03/17 08:00 06/03/17 07:57 06/03/17 07:57 Oxygen Flow Rate 1 Oxygen Delivery Method Nasal Cannula Weight: 146 lb 9.613 oz Body Mass Index (BMI) 26.8 Intake and Output for Last 24 Hours 06/01/17 06/02/17 06/03/17 23:59 23:59 23:59 Intake Total 393 / 393 644 / 644 Output Total 250 / 250 Balance 143 / 143 644 / 644 Laboratory Tests Past 24 Hrs 06/02/17 06/02/17 06/02/17 16:34 16:45 21:54 WBC RBC Hgb Hct MCV MCH MCHC RDW RDW Differential Plt Count MPV Immature Gran % (Auto) Neut % (Auto) Lymph % (Auto) Hickman % (Auto) Eos % (Auto) Baso % (Auto) Absolute Neuts (auto) Absolute Lymphs (auto) Total Counted Sodium Potassium Chloride Carbon Dioxide Anion Gap BUN Creatinine Estim Creat Clear Calc Est GFR (MDRD) Af Amer Est GFR (MDRD) Non-Af BUN/Creatinine Ratio Glucose Hemoglobin A1c Lactic Acid 2.0 1.8 Calcium Magnesium Iron TIBC Iron Saturation Ferritin Total Bilirubin Direct Bilirubin AST ALT Alkaline Phosphatase Total Protein Albumin Globulin TSH MRSA (PCR) Negative 06/03/17 06/03/17 06/03/17 07:12 07:12 07:12 WBC 17.6 H RBC 3.71 L Hgb 9.7 L Hct 31.3 L MCV 84.4 MCH 26.1 L MCHC 31.0 L RDW 14.8 H RDW Differential 44.1 H Plt Count 417 MPV 10.1 Immature Gran % (Auto) 0.400 Neut % (Auto) 74.4 H Lymph % (Auto) 11.9 L Hickman % (Auto) 8.2 Eos % (Auto) 4.8 Baso % (Auto) 0.3 Absolute Neuts (auto) 13.1 H Absolute Lymphs (auto) 2.09 Total Counted Not Reportable Sodium 138 Potassium 3.8 Chloride 102 Carbon Dioxide 26.0 Anion Gap 10 BUN 12 Creatinine 0.94 Estim Creat Clear Calc 36.49 Est GFR (MDRD) Af Amer 73 Est GFR (MDRD) Non-Af 60 BUN/Creatinine Ratio 12.7 Glucose 99 Hemoglobin A1c Lactic Acid Calcium 7.9 L Magnesium 1.8 Iron TIBC Iron Saturation Ferritin Total Bilirubin 0.50 Direct Bilirubin 0.14 AST 11 L ALT 10 L Alkaline Phosphatase 134 H Total Protein 4.6 L Albumin 1.6 L Globulin 3.0 TSH 3.21 MRSA (PCR) 06/03/17 06/03/17 07:12 07:12 WBC RBC Hgb Hct MCV MCH MCHC RDW RDW Differential Plt Count MPV Immature Gran % (Auto) Neut % (Auto) Lymph % (Auto) Hickman % (Auto) Eos % (Auto) Baso % (Auto) Absolute Neuts (auto) Absolute Lymphs (auto) Total Counted Sodium Potassium Chloride Carbon Dioxide Anion Gap BUN Creatinine Estim Creat Clear Calc Est GFR (MDRD) Af Amer Est GFR (MDRD) Non-Af BUN/Creatinine Ratio Glucose Hemoglobin A1c 6.4 H Lactic Acid Calcium Magnesium Iron 17 L TIBC 192 L Iron Saturation 8.9 L Ferritin 390 H Total Bilirubin Direct Bilirubin AST ALT Alkaline Phosphatase Total Protein Albumin Globulin TSH MRSA (PCR) Assessment/Plan Active and Suspected Problems Acute hypoxic respiratory failure (Acute) Headache and neck pain (Acute) Leukocytosis (Acute) 82-year-old female admitted for weakness, leukocytosis of 18,000, ultrasound gallbladder showed mildly thickened wall at 3.2 with cholelithiasis 1. Patient states that she previously was going to have her gallbladder removed at [facility] [place] however due to brain aneurysm they were unable to do this and she was also at too high risk to do anything about the aneurysm. Patient does not want any surgery. Unsure the exact cause of the leukocytosis however on the rest the workup the lungs look clear, urine was also fairly clear, so I would be suspicious about the gallbladder due to the wall being 3.2 mm. Discussed with the patient that we could possibly do a HIDA scan to prove whether she was having acute cholecystitis and then possibly putting Ratna tube in. Patient currently states that she does not want any surgery, or the tube or any other tests. Patient does not have a clear history of symptoms from her gallbladder she states that she has an upset stomach occasionally before and after she eats in the morning which I would not think that the gallbladder should cause not upset stomach before she ever ate everything that be more due to reflux which is sore to where she points when she says she has a upset stomach, epigastric up into her chest. She does states she has had a decreased appetite and has not been eating well denies any vomiting but states she has had some nausea. Again with her white blood count of 18,000 I would think a HIDA would be reasonable to pursue however I am unsure if the patient wants to go through with the test or the tube. Currently she states she wants to be DNR but is unable to make a decision on CCA or MOSS GATHERER she prefers something and does not cost any money. Audrey Miguel M.D. Pager: [phone] [facility] [address] [place] [address], [address] [place] [address] Office: [phone] Code Visit Inpatient E&M: 35212 Init Hosp L1
--- NOTE | 2017-06-03 09:13 | CON.PCM_ITS ---
Reason for Consult Date of Consultation: 06/03/17 History of Present Illness: The patient is a 82 year old F for generalized weakness and leukocytosis. Patient did have an ultrasound which showed a mildly thickened gallbladder wall at 3.2 mm along with gallstones, no pericholecystic fluid, no Ward sign. Patient's urine also did not look consistent with a UTI and the chest CTA was fairly normal. Patient states she has had weakness for several months and had several falls in that amount of time. During this time she does not state she has had any abdominal pain however she does states she has had a decreased appetite and she occasionally has some upset stomach which sounds like reflux symptoms in the epigastric up her esophagus. Patient states that in the past she was supposed to get her gallbladder removed at [facility] due to gallstones however she has a brain aneurysm at her brainstem and they thought it was too risky to do the surgery and they also felt was too risky to try to remove were clipped the aneurysm as well. She currently states she is not interested in any surgery for her gallbladder. And again currently denies right upper quadrant pain after eating or nausea and vomiting, but she does state occasionally she will have nausea prior to eating. Past Medical History Past Medical History (Chronic Problems): Chronic Problems Multiple falls (Chronic) Lung nodule seen on imaging study (Chronic) NEEDS WORKUP Anemia (Chronic) THIS WAS NOT WORKED UP DURING HOSPITALIZATION NSTEMI (non-ST elevated myocardial infarction) (Chronic) Atrial fibrillation (Chronic) HTN (hypertension) (Chronic) History of breast cancer (Chronic) Syncope (Chronic) Allergies No Known Allergies Allergy (Verified 06/02/17 09:51) Home Medications: Ambulatory Orders Medication Instructions Recorded Aspirin [Aspirin, Baby] 81 mg PO DAILY@0800 12/22/16 Gabapentin [Neurontin] 300 mg PO TID 12/22/16 Metoprolol Tartrate 75 mg PO BID 12/22/16 Atorvastatin Calcium 40 mg PO QHS 01/06/17 Amlodipine [Norvasc] 5 mg PO DAILY 06/02/17 Naproxen Sodium [Aleve] 220 mg PO Q12H PRN PRN 06/02/17 Surgical History: mastectomy Psychiatric History: No pertinent psych hx 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 Denies: Chills, Fever HEENT: Denies: Difficulty Swallowing Cardiovascular: Denies: Chest Pain Respiratory: Denies: Cough, Shortness of breath at rest Gastrointestinal: Denies: Abdominal Pain, Constipation, Diarrhea, Vomiting Genitourinary: Denies: Dysuria Skin: Denies: Rash Psychiatric: Denies: Anxiety, Depression Hematologic/ Lymphatic: Denies: Easy Bruising Patient Problems: Active and Suspected Problems Acute hypoxic respiratory failure (Acute) Headache and neck pain (Acute) Leukocytosis (Acute) - Physical Exam Vital Signs Temp Pulse Resp BP Pulse Ox 98.5 F 76 18 126/75 H 89 06/03/17 07:57 06/03/17 07:57 06/03/17 08:00 06/03/17 07:57 06/03/17 07:57 Oxygen Flow Rate 1 Oxygen Delivery Method Nasal Cannula Weight: 146 lb 9.613 oz Body Mass Index (BMI) 26.8 Intake and Output for Last 24 Hours 06/01/17 06/02/17 06/03/17 23:59 23:59 23:59 Intake Total 393 / 393 644 / 644 Output Total 250 / 250 Balance 143 / 143 644 / 644 Laboratory Tests Past 24 Hrs 06/02/17 06/02/17 06/02/17 16:34 16:45 21:54 WBC RBC Hgb Hct MCV MCH MCHC RDW RDW Differential Plt Count MPV Immature Gran % (Auto) Neut % (Auto) Lymph % (Auto) Dunn % (Auto) Eos % (Auto) Baso % (Auto) Absolute Neuts (auto) Absolute Lymphs (auto) Total Counted Sodium Potassium Chloride Carbon Dioxide Anion Gap BUN Creatinine Estim Creat Clear Calc Est GFR (MDRD) Af Amer Est GFR (MDRD) Non-Af BUN/Creatinine Ratio Glucose Hemoglobin A1c Lactic Acid 2.0 1.8 Calcium Magnesium Iron TIBC Iron Saturation Ferritin Total Bilirubin Direct Bilirubin AST ALT Alkaline Phosphatase Total Protein Albumin Globulin TSH MRSA (PCR) Negative 06/03/17 06/03/17 06/03/17 07:12 07:12 07:12 WBC 17.6 H RBC 3.71 L Hgb 9.7 L Hct 31.3 L MCV 84.4 MCH 26.1 L MCHC 31.0 L RDW 14.8 H RDW Differential 44.1 H Plt Count 417 MPV 10.1 Immature Gran % (Auto) 0.400 Neut % (Auto) 74.4 H Lymph % (Auto) 11.9 L Dunn % (Auto) 8.2 Eos % (Auto) 4.8 Baso % (Auto) 0.3 Absolute Neuts (auto) 13.1 H Absolute Lymphs (auto) 2.09 Total Counted Not Reportable Sodium 138 Potassium 3.8 Chloride 102 Carbon Dioxide 26.0 Anion Gap 10 BUN 12 Creatinine 0.94 Estim Creat Clear Calc 36.49 Est GFR (MDRD) Af Amer 73 Est GFR (MDRD) Non-Af 60 BUN/Creatinine Ratio 12.7 Glucose 99 Hemoglobin A1c Lactic Acid Calcium 7.9 L Magnesium 1.8 Iron TIBC Iron Saturation Ferritin Total Bilirubin 0.50 Direct Bilirubin 0.14 AST 11 L ALT 10 L Alkaline Phosphatase 134 H Total Protein 4.6 L Albumin 1.6 L Globulin 3.0 TSH 3.21 MRSA (PCR) 06/03/17 06/03/17 07:12 07:12 WBC RBC Hgb Hct MCV MCH MCHC RDW RDW Differential Plt Count MPV Immature Gran % (Auto) Neut % (Auto) Lymph % (Auto) Dunn % (Auto) Eos % (Auto) Baso % (Auto) Absolute Neuts (auto) Absolute Lymphs (auto) Total Counted Sodium Potassium Chloride Carbon Dioxide Anion Gap BUN Creatinine Estim Creat Clear Calc Est GFR (MDRD) Af Amer Est GFR (MDRD) Non-Af BUN/Creatinine Ratio Glucose Hemoglobin A1c 6.4 H Lactic Acid Calcium Magnesium Iron 17 L TIBC 192 L Iron Saturation 8.9 L Ferritin 390 H Total Bilirubin Direct Bilirubin AST ALT Alkaline Phosphatase Total Protein Albumin Globulin TSH MRSA (PCR) Assessment/Plan Active and Suspected Problems Acute hypoxic respiratory failure (Acute) Headache and neck pain (Acute) Leukocytosis (Acute) 82-year-old female admitted for weakness, leukocytosis of 18,000, ultrasound gallbladder showed mildly thickened wall at 3.2 with cholelithiasis 1. Patient states that she previously was going to have her gallbladder removed at [facility] [place] however due to brain aneurysm they were unable to do this and she was also at too high risk to do anything about the aneurysm. Patient does not want any surgery. Unsure the exact cause of the leukocytosis however on the rest the workup the lungs look clear, urine was also fairly clear , so I would be suspicious about the gallbladder due to the wall being 3.2 mm. Discussed with the patient that we could possibly do a HIDA scan to prove whether she was having acute cholecystitis and then possibly putting Ratna tube in. Patient currently states that she does not want any surgery, or the tube or any other tests. Patient does not have a clear history of symptoms from her gallbladder she states that she has an upset stomach occasionally before and after she eats in the morning which I would not think that the gallbladder should cause not upset stomach before she ever ate everything that be more due to reflux which is sore to where she points when she says she has a upset stomach, epigastric up into her chest. She does states she has had a decreased appetite and has not been eating well denies any vomiting but states she has had some nausea. Again with her white blood count of 18,000 I would think a HIDA would be reasonable to pursue however I am unsure if the patient wants to go through with the test or the tube. Currently she states she wants to be DNR but is unable to make a decision on CCA or THIRD HAND she prefers something and does not cost any money. Audrey Miguel M.D. Pager: [phone] [facility] [address] [place] [address], [address] [place] [address] Office: [phone] Code Visit Inpatient E&M: 83069 Init Hosp L1
--- NOTE | 2017-06-03 09:55 | NURSING ---
PT TO NUCLEAR MED FOR HIDASCAN VIA BED
[2017-06-03] MEDS: amLODIPine 5 MG Tablet PO (11:27)
[2017-06-03] MEDS: Metoprolol Tartrate 50 MG Tablet PO ×2 (11:31→21:04)
--- NOTE | 2017-06-03 13:09 | CASEMGMT ---
Social Work Met with pt in room and introduced role of CHARLIE. Pt lives at home with her dgt Riddhi. Dgt does work time study statistician and pt is alone during dgt work hours. Pt was at [facility] from December 2016 until d/c on 03/25/17. Pt returned home with [facility] and reports she was doing quite well at first and slowly weakened over time. Currently pt dgt assists with meal prep, bathing and dressing. PT states she can get to the bathroom buy herself. She does have a walker, raised toilet seat and BSC. Pt lives in a two story home with bed and bath upstairs. She states when she returned home from the [facility] she initially slept on the loveseat and used the BSC so she could stay on the first floor. She did progress to using the stairs and returning to her bedroom. Pt is uncertain at this time of d/c plan. She is willing to go to [place] for SNF stay if needed but also willing to go home with home health if this is appropriate. Pt expressing concerns that she cannot afford SNF if insurance does not cover. CHARLIE reviewed with pt that if pt has a qualifying three day stay, Medicare benefit is in place to pay 100% for initail 20 days followed by the 80% coverage. Pt does see Dr. Hearn and uses [facility]. PT has brother listed on face sheet but states her dgt Riddhi is her HCPOA and primary contact. CHARLIE requested pt bring copy of Living Will and HCPOA to hospital for medical record. PT/OT has been ordered. SW and pt agree to wait on therapy evaluations to determine best level of care upon d/c. CHARLIE will continue to follow. MICHELLE Spicer
[2017-06-03] MEDS: Pantoprazole Sodium 40 MG Tablet PO ×2 (15:42→21:04)
--- NOTE | 2017-06-03 15:46 | NURSING ---
PLACED PT ON O2 1L NC
--- NOTE | 2017-06-03 15:49 | CASEMGMT ---
Social Work Spoke with therapy and pt was able to walk 150 feet at [facility] and able to get out of bed at [facility]. SW met with pt and discussed discharge plan. PT feels she is able to return home and is agreeable to home health services with [facility] PT/OT. SW offered [facility] and pt denied stating her dgt can assist with bathing if needed. Pt discussed meals on wheels with pt and she is agreeable to this. VM left on referral line for [facility]. Referral form faxed. Discussed with pt option of Medical alert. PT showed some interest in this and would like to speak with her dgt prior to making a decision. SW provided written information on medical alert and instruction on how to get this started if she chooses to. Referral made to [facility] for PT and OT. Pt denies need to call dgt with discharge information. She states she will inform her of d/c plan this evening when she comes in. Plan: D/C home with [facility] PT/OT MICHELLE Spicer
--- NOTE | 2017-06-03 16:18 | CON.PCM_ITS ---
Problem List (1) Leukocytosis Status: Acute Reason for Consult: high wbc Consulted by: Dr. Kennedy History of Present Illness: The patient is a 82 year old F with h/o breast cancer who presented with worsening headache and weakness. Has been having intermittent headache for several months. No fever or chills. No dysuria. No cough or SOB. Some rare nausea and epigastric pain. No diarrhea. No recent abx prior to admission. Came to ED, wbc elevated, cxs sent, started on zosyn. Surgery consulted, and HIDA scan done. Does report occasional soreness along R lower gumline, but no swelling or drainage. Full ROS Performed and neg except as noted above. - Medical History Past Medical History (Chronic Problems): Chronic Problems Multiple falls (Chronic) Lung nodule seen on imaging study (Chronic) NEEDS WORKUP Anemia (Chronic) THIS WAS NOT WORKED UP DURING HOSPITALIZATION NSTEMI (non-ST elevated myocardial infarction) (Chronic) Atrial fibrillation (Chronic) HTN (hypertension) (Chronic) History of breast cancer (Chronic) Syncope (Chronic) Allergies/Adverse Reactions: Allergies No Known Allergies Allergy (Verified 06/02/17 09:51) Home Medications: Ambulatory Orders Medication Instructions Recorded Aspirin [Aspirin, Baby] 81 mg PO DAILY@0800 12/22/16 Gabapentin [Neurontin] 300 mg PO TID 12/22/16 Metoprolol Tartrate 75 mg PO BID 12/22/16 Atorvastatin Calcium 40 mg PO QHS 01/06/17 Amlodipine [Norvasc] 5 mg PO DAILY 06/02/17 Naproxen Sodium [Aleve] 220 mg PO Q12H PRN PRN 06/02/17 Vital Signs Temp Pulse Resp BP Pulse Ox 98.2 F 69 18 135/69 H 89 06/03/17 15:44 06/03/17 15:44 06/03/17 15:44 06/03/17 15:44 06/03/17 15:44 Oxygen Flow Rate 1 Oxygen Delivery Method Room Air Weight: 66.497 kg Body Mass Index (BMI) 26.8 Laboratory Tests Past 24 Hrs 06/02/17 06/02/17 06/02/17 16:34 16:45 21:54 WBC RBC Hgb Hct MCV MCH MCHC RDW RDW Differential Plt Count MPV Immature Gran % (Auto) Neut % (Auto) Lymph % (Auto) [place] % (Auto) Eos % (Auto) Baso % (Auto) Absolute Neuts (auto) Absolute Lymphs (auto) Total Counted Sodium Potassium Chloride Carbon Dioxide Anion Gap BUN Creatinine Estim Creat Clear Calc Est GFR (MDRD) Af Amer Est GFR (MDRD) Non-Af BUN/Creatinine Ratio Glucose Hemoglobin A1c Lactic Acid 2.0 1.8 Calcium Magnesium Iron TIBC Iron Saturation Ferritin Total Bilirubin Direct Bilirubin AST ALT Alkaline Phosphatase Total Protein Albumin Globulin TSH MRSA (PCR) Negative 06/03/17 06/03/17 06/03/17 07:12 07:12 07:12 WBC 17.6 H RBC 3.71 L Hgb 9.7 L Hct 31.3 L MCV 84.4 MCH 26.1 L MCHC 31.0 L RDW 14.8 H RDW Differential 44.1 H Plt Count 417 MPV 10.1 Immature Gran % (Auto) 0.400 Neut % (Auto) 74.4 H Lymph % (Auto) 11.9 L [place] % (Auto) 8.2 Eos % (Auto) 4.8 Baso % (Auto) 0.3 Absolute Neuts (auto) 13.1 H Absolute Lymphs (auto) 2.09 Total Counted Not Reportable Sodium 138 Potassium 3.8 Chloride 102 Carbon Dioxide 26.0 Anion Gap 10 BUN 12 Creatinine 0.94 Estim Creat Clear Calc 36.49 Est GFR (MDRD) Af Amer 73 Est GFR (MDRD) Non-Af 60 BUN/Creatinine Ratio 12.7 Glucose 99 Hemoglobin A1c Lactic Acid Calcium 7.9 L Magnesium 1.8 Iron TIBC Iron Saturation Ferritin Total Bilirubin 0.50 Direct Bilirubin 0.14 AST 11 L ALT 10 L Alkaline Phosphatase 134 H Total Protein 4.6 L Albumin 1.6 L Globulin 3.0 TSH 3.21 MRSA (PCR) 06/03/17 06/03/17 07:12 07:12 WBC RBC Hgb Hct MCV MCH MCHC RDW RDW Differential Plt Count MPV Immature Gran % (Auto) Neut % (Auto) Lymph % (Auto) [place] % (Auto) Eos % (Auto) Baso % (Auto) Absolute Neuts (auto) Absolute Lymphs (auto) Total Counted Sodium Potassium Chloride Carbon Dioxide Anion Gap BUN Creatinine Estim Creat Clear Calc Est GFR (MDRD) Af Amer Est GFR (MDRD) Non-Af BUN/Creatinine Ratio Glucose Hemoglobin A1c 6.4 H Lactic Acid Calcium Magnesium Iron 17 L TIBC 192 L Iron Saturation 8.9 L Ferritin 390 H Total Bilirubin Direct Bilirubin AST ALT Alkaline Phosphatase Total Protein Albumin Globulin TSH MRSA (PCR) - Other Studies Radiology: [] reviewed Other Studies: [] Route of nutrition/ use of supplements: [] Nutritional Intake: [] IV Site: [] Gibbons Catheter: [] - Physical Exam General: Alert, Oriented x3, Cooperative, No apparent distress HEENT: Atraumatic, PERRLA, EOMI Neck: Supple, No Nodes Lungs: Clear to auscultation, Normal air movement Cardiovascular: Regular rate, Regular Rhythm Abdomen: Bowel Sounds Present, Soft, Non Tender, Non-Distended Extremities: No edema Skin: No rashes IV Site: Peripheral, without redness Musculoskeletal: No Tenderness to Palpation of Joints or Extremities - Assessment/Plan Antibiotics: [] Assessment/Plan: [] Active and Suspected Problems Acute hypoxic respiratory failure (Acute) Headache and neck pain (Acute) Leukocytosis - unclear cause, infectious work-up so far has been negative. HIDA today neg for cholecystitis. UA with no pyuria. CXR clear. Would stop zosyn and monitor off of abx. Having some tooth/gum pain, so will order panorex. Thank you, will follow.
--- NOTE | 2017-06-03 17:08 | RAD_ITS ---
STUDY: X-RAY - MANDIBLE (COMPLETE) REASON FOR EXAM: Female, 82 years old MANDIBLE PAIN RIGHT LOWER JAW. PATIENT STATES SHE FELL AND HIT HER JAW INTO A NIGHTSTAND ABOUT 7 MONTHS AGO. TECHNIQUE: 6 view(s) of the mandible were obtained. COMPARISON: None. FINDINGS: Normal mandible. Normal visualized right temporomandibular joint. Normal visualized left temporomandibular joint. Degenerative findings of the cervical spine. The soft tissue structures are unremarkable. RAD/Mandible Min 4 Views IMPRESSION: Normal x-ray examination of the mandible. Electronically Signed: Tyler Christiansen MD at 17:45 EST , Service support ,
[2017-06-03] MEDS: Enoxaparin 40 MG/0.4 ML Syringe SC (17:51)
[2017-06-03] MEDS: Atorvastatin Calcium 40 MG Tablet PO (21:04)
[2017-06-03] MEDS: 0.9% NaCl Peripheral Flush Adult/Peds IV (21:04)
[2017-06-04] VITALS (8 sets, daily range): BP systolic 108–136; BP diastolic 53–71; PULSE 76–96; RESP 18–20; TEMP 36.5–36.9; O2SAT 93–97
[2017-06-04] MEDS: Mag Hydrox/Al Hydrox/Simeth 30 ML UDC PO (02:19)
[2017-06-04] MEDS: Acetaminophen 325 MG Tablet 650 MG PO ×2 (05:51→11:31)
[2017-06-04] MEDS: Ipratropium/Albuterol Sulfate 3 ML AMPUL.NEB INHALATION ×2 (07:38→13:31)
[2017-06-04] MEDS: Gabapentin 300 MG Capsule PO ×3 (07:53→16:57)
[2017-06-04] MEDS: Aspirin 81 MG TAB.CHEW PO (07:53)
[2017-06-04] MEDS: Enoxaparin 40 MG/0.4 ML Syringe SC (07:54)
[2017-06-04] MEDS: Pantoprazole Sodium 40 MG Tablet PO ×2 (07:55→21:05)
--- NOTE | 2017-06-04 08:37 | PCM.PN.SRG ---
Patient Problems: Active and Suspected Problems Acute hypoxic respiratory failure (Acute) Headache and neck pain (Acute) Leukocytosis (Acute) Subjective: Patient still denies any abdominal pain, states she had an upset stomach which improved after she got the yellow pill from the nurse which was Protonix. Her HIDA scan was negative. - Physical Exam General: Alert, Oriented x3, Cooperative, No apparent distress Abdomen: Soft, Non Tender - No guarding or rebound, Non-Distended Vital Signs Temp Pulse Resp BP Pulse Ox 98.3 F 87 18 108/65 93 06/04/17 07:48 06/04/17 07:54 06/04/17 07:48 06/04/17 07:54 06/04/17 07:48 Oxygen Flow Rate 2 Oxygen Delivery Method Room Air Weight: 146 lb 9.613 oz Body Mass Index (BMI) 26.8 Intake and Output for Last 24 Hours 06/02/17 06/03/17 06/04/17 23:59 23:59 23:59 Intake Total 393 / 393 1174 / 1174 540 / 540 Output Total 250 / 250 200 / 200 Balance 143 / 143 974 / 974 540 / 540 Microbiology Past 72 Hours 06/03/17 19:15 Stool Occult Blood (DUY) - Final Stool Laboratory Tests Past 24 Hrs 06/03/17 06/03/17 07:12 07:12 Hemoglobin A1c 6.4 H Iron 17 L TIBC 192 L Iron Saturation 8.9 L Ferritin 390 H Assessment/Plan Active and Suspected Problems Acute hypoxic respiratory failure (Acute) Headache and neck pain (Acute) Leukocytosis (Acute) 82-year-old female admitted for weakness, leukocytosis of 18,000, ultrasound gallbladder showed mildly thickened wall at 3.2 with cholelithiasis 1. HIDA scan was negative and did show the gallbladder filling. Patient still denies any abdominal pain except for some upset stomach which is improved with Protonix. 2. Leukocytosis--Unknown etiology ID also following, antibiotics were stopped and labs are pending Audrey Miguel M.D. Pager: [phone] [facility] [address] [place] [address], [address] [place] [address] Office: [phone] Code Visit Inpatient E&M: [id number] [facility] Hosp L1
--- NOTE | 2017-06-04 08:40 | PN.SURG_ITS ---
Patient Problems: Active and Suspected Problems Acute hypoxic respiratory failure (Acute) Headache and neck pain (Acute) Leukocytosis (Acute) Subjective: Patient still denies any abdominal pain, states she had an upset stomach which improved after she got the yellow pill from the nurse which was Protonix. Her HIDA scan was negative. - Physical Exam General: Alert, Oriented x3, Cooperative, No apparent distress Abdomen: Soft, Non Tender - No guarding or rebound, Non-Distended Vital Signs Temp Pulse Resp BP Pulse Ox 98.3 F 87 18 108/65 93 06/04/17 07:48 06/04/17 07:54 06/04/17 07:48 06/04/17 07:54 06/04/17 07:48 Oxygen Flow Rate 2 Oxygen Delivery Method Room Air Weight: 146 lb 9.613 oz Body Mass Index (BMI) 26.8 Intake and Output for Last 24 Hours 06/02/17 06/03/17 06/04/17 23:59 23:59 23:59 Intake Total 393 / 393 1174 / 1174 540 / 540 Output Total 250 / 250 200 / 200 Balance 143 / 143 974 / 974 540 / 540 Microbiology Past 72 Hours 06/03/17 19:15 Stool Occult Blood (DUY) - Final Stool Laboratory Tests Past 24 Hrs 06/03/17 06/03/17 07:12 07:12 Hemoglobin A1c 6.4 H Iron 17 L TIBC 192 L Iron Saturation 8.9 L Ferritin 390 H Assessment/Plan Active and Suspected Problems Acute hypoxic respiratory failure (Acute) Headache and neck pain (Acute) Leukocytosis (Acute) 82-year-old female admitted for weakness, leukocytosis of 18,000, ultrasound gallbladder showed mildly thickened wall at 3.2 with cholelithiasis 1. HIDA scan was negative and did show the gallbladder filling. Patient still denies any abdominal pain except for some upset stomach which is improved with Protonix. 2. Leukocytosis--Unknown etiology ID also following, antibiotics were stopped and labs are pending Audrey Miguel M.D. Pager: [phone] [facility] [address] [place] [address], [address] [place] [address] Office: [phone] Code Visit Inpatient E&M: [id number] [facility] Hosp L1
--- NOTE | 2017-06-04 08:47 | PCM.PN.HOSP ---
Patient Problems: Active and Suspected Problems Acute hypoxic respiratory failure (Acute) Headache and neck pain (Acute) Leukocytosis (Acute) Subjective: Patient with no events overnight per self and per nursing report. She states she has had no further abdominal discomfort, nausea or emesis. She does state that she has chronic headache and neck strain but this is unchanged for the last several years. Discussed current workup with unremarkable HIDA scan as well as unremarkable Panorex of the jaw following infectious disease evaluation with unclear etiology for leukocytosis with recommendation for hold on antibiotic therapy. Patient without questions and noted understanding of current plan to continue observation off of antibiotic therapy to assess further needs. Gas with case management and plan upon discharge would be continuation of therapies and home health. Patient denies fevers, chills, nausea, emesis, abdominal pain, chest pain or dyspnea. Objective: Physical Examination: General: awake, alert, oriented x 3 and cooperative, seated upright in bed in no apparent distress, more calm this AM. Skin: normal color, turgor, no icterus, cyanosis. HEENT: AT/NC, EOMI, PERRLA, MMM. Lungs: Diminished bases, mild effort, no rales, ronchi or wheezing. Heart: Regular rate and rhythm; no gallop, rub audible, SM. Abdomen: soft, NTTP, ND, normal BS. Extremities: no cyanosis, clubbing, or edema. Neurological: patient awake, alert, oriented x 3; cognitive function intact; pupils equally reactive to light and accomodation; cranial nerves II-XII grossly normal, moving all 4 extremities, no focal deficits, strength improved, mildly to moderately globally decreased. Psychiatric: affect appears more calm, normal, no acute evidence of depressive or anxiety feelings. Vitals/I&O's: Vital Signs Temp Pulse Resp BP Pulse Ox 98.3 F 87 18 108/65 93 06/04/17 07:48 06/04/17 07:54 06/04/17 07:48 06/04/17 07:54 06/04/17 07:48 Oxygen Flow Rate 2 Oxygen Delivery Method Room Air Weight: 146 lb 9.613 oz Body Mass Index (BMI) 26.8 Intake and Output for Last 24 Hours 06/02/17 06/03/17 06/04/17 23:59 23:59 23:59 Intake Total 393 / 393 1174 / 1174 540 / 540 Output Total 250 / 250 200 / 200 Balance 143 / 143 974 / 974 540 / 540 Microbiology Past 72 Hours 06/03/17 19:15 Stool Stool Occult Blood (DUY) - Final Laboratory Results 06/03/17 07:12: Hemoglobin A1c 6.4 H 06/03/17 07:12: Iron 17 L, TIBC 192 L, Iron Saturation 8.9 L, Ferritin 390 H 06/04/17 08:40: WBC Pending, RBC Pending, Hgb Pending, Hct Pending, MCV Pending, MCH Pending, MCHC Pending, RDW Pending, RDW Differential Pending, Plt Count Pending, Neut % (Auto) Pending, Absolute Neuts (auto) Pending, Total Counted Pending 06/04/17 08:40: Sodium Pending, Potassium Pending, Chloride Pending, Carbon Dioxide Pending, Anion Gap Pending, BUN Pending, Creatinine Pending, Est GFR (MDRD) Af Amer Pending, Est GFR (MDRD) Non-Af Pending, BUN/Creatinine Ratio Pending, Glucose Pending, Calcium Pending, Total Bilirubin Pending, AST Pending, ALT Pending, Alkaline Phosphatase Pending, Total Protein Pending, Albumin Pending Current Medications Acetaminophen (Tylenol) 650 mg PO Q4H PRN PRN PRN Reason: fEVER/MILD PAIN Last Admin: 06/04/17 05:51 Dose: 650 mg Al Hydroxide/Mg Hydroxide (Mylanta Ii) 30 ml PO Q6H PRN PRN PRN Reason: Gastric burning Last Admin: 06/04/17 02:19 Dose: 30 ml Albuterol Sulfate (Ventolin Aerosols) 2.5 mg INHALATION Q2H PRN PRN PRN Reason: dyspnea, wheezing Albuterol/Ipratropium (Duoneb) 3 ml INHALATION Q6HWA.RT [facility] Last Admin: 06/04/17 07:38 Dose: 3 ml Amlodipine Besylate (Norvasc) 5 mg PO DAILY [facility] Last Admin: 06/04/17 07:55 Dose: Not Given Aspirin (Aspirin, Baby) 81 mg PO DAILY@0800 [facility] Last Admin: 06/04/17 07:53 Dose: 81 mg Atorvastatin Calcium (Lipitor) 40 mg PO QHS [facility] Last Admin: 06/03/17 21:04 Dose: 40 mg Enoxaparin Sodium (Lovenox) 40 mg SC DAILY@1000 [facility] Last Admin: 06/04/17 07:54 Dose: 40 mg Ferrous Gluconate (Ferrous Gluconate) [facility] Gabapentin (Neurontin) 300 mg PO TIDCM [facility] Last Admin: 06/04/17 07:53 Dose: 300 mg Magnesium Hydroxide (Milk Of Magnesia) 30 ml PO DAILY PRN PRN PRN Reason: Constipation Metoprolol Tartrate (Lopressor (Beta Murray)) 50 mg PO BID [facility] Last Admin: 06/04/17 07:54 Dose: Not Given Ondansetron HCl (Zofran) 4 mg IV Q8H PRN PRN PRN Reason: NAUSEA Oxycodone HCl (Oxyir) 5 mg PO Q4H PRN PRN PRN Reason: SEVERE PAIN (6-10/10) Pantoprazole Sodium (Protonix) 40 mg PO BID [facility] Last Admin: 06/04/17 07:55 Dose: 40 mg Promethazine HCl (Phenergan (Ll)) 12.5 mg IV Q6H PRN PRN PRN Reason: NAUSEA/VOMITING Sodium Chloride () 5 - 30 ml IV UD PRN PRN Reason: SALINE FLUSH Last Admin: 06/03/17 21:04 Dose: 10 ml Assessment/Plan Active and Suspected Problems Acute hypoxic respiratory failure (Acute) Headache and neck pain (Acute) Leukocytosis (Acute) The patient is an 82 y/o F w/ PMHx: CAD s/p NSTEMI, History of Breast CA, Chronic Atrial Fibrillation, HTN, HLD, Chronic normocytic anemia (9-10 baseline) who presents to the [facility] ED on 06/02/17 with generalized weakness x 2-3 weeks. (1) Serial Falls, Weakness, Debility: Unclear specific etiology, leukocytosis upon admission, evaluation ongoing for possible etiology, continue work-up, fall precautions, CT head and CT neck without acute findings, PT, OT, CM for discharge planning with plan once clinically appropriate for discharge to home with home health therapies. SNF declined. (2) Leukocytosis, Unclear Etiology: Admission CBC w/ WBC 18.1 with L shift, afebrile upon presentation, UA not marked, UCx, Bld Cx pending, CXR and follow CTPA secondary to mild hypoxia in the ED unremarkable, only findings was GB US w/ mild gallbladder wall thickening and cholelithiasis. HIDA scan obtained, unremarkable, rules out acute cholecystitis, given no clear etiology for leukocytosis and noted to have remained afebrile, discontinued zosyn therapy. ID following and panorex jaw secondary to sore gumline obtained as possible etiology, noted normal appearing. (3) Cholelithiasis: Surgery evaluation performed, HIDA scan ruled out acute cholecystitis, not a candidate secondary to prior ? brain aneurysm noted at OSH evaluation and currently no indicated. (4) Hyperglycemia w/ Pre-Diabetes Mellitus type II Status: Admission glucose and prior noted to be serially elevated, HgBA1c 6.4%, encouraged improved diet and lifestyle changes with repeat HgBA1c with PCP. (5) Hypoxia, DOES NOT HAVE Acute Hypoxic Respiratory Failure: Noted to have mild hypoxic in the ED, noted during prior admission as well but resolved with O2 needs, maintained on oxygen with wean to room air, ECHO 12/22/16 w/ EF 65%, stage I diastolic dysfunction, mild MV insufficiency, trivial TV insufficiency, RVSP 25 mmHg, mild aortic stenosis, stable appearing since echo prior to this 2012. Unclear etiology, initiated PRN albuterol, duonebs, may benefit from outpatient PFTs. CXR, CTPA without acute etiology. Resolved. (6) Right Neck Strain: Ongoing for several months-year per her report. ID consulted and no marked concern as etiology for elevated WBC, remains afebrile. CT Neck without acute finding, no rigidity, continue fall precautions, PT, OT, compress as needed, PRN tylenol. (7) Chronic Normocytic Anemia: Unclear specific etiology, admission Hgb 11.1, baseline 9-10, 2/2/ Hgb 9.7, Fe panel, ferritin obtained consistent with Fe deficiency anemia. Added Fe supplementation. Guiac requested. (8) Incidental Ascending Thoracic Aortic Aneurysmal Dilation: CTPA obtained upon presentation, 45 mm aneurysmal dilation ascending thoracic aorta noted, monitor outpatient. (9) Chronic Atrial Fibrillation: Maintain on asa, metoprolol decreased given fall history w/ unclear usage of possible midodrine w/ hold parameters. Given age and fall history not appropriate anticoagulation candidate. (10) CAD: Hx NSTEMI, maintain on asa, statin, metoprolol decreased w/ hold parameters. (11) Hypertension: Continue home regimen including Norvasc, metoprolol decreased with hold parameters, PRN hydralazine. (12) Hyperlipidemia: Continue home statin regimen. (13) Known Pulmonary Nodules: CTPA w/ 3.8 mm right middle lobe nodule, right 14 mm lower lobe nonpalpable, stable lingular nodule. Continue to follow outpatient. (14) DVT Prophylaxis: SCDs, lovenox. (15) CODE status: DNR-CCA, no intubation. Code Visit Inpatient E&M: [id number] Subs Hosp L2
[2017-06-04 08:48] LABS: Absolute Lymphocyte Count 2.84 X10^3/ul (0.83-4.51); Absolute Neutrophil Count 11.4 X10^3/uL (2.0-7.7); Basophil# 0.05 X10^3/uL; Basophil% 0.3 % (0-1); Eosinophil# 1.36 X10^3/uL; Hematocrit 34.7 % (37-47); Hemoglobin 10.6 g/dl (12.0-15.0); Lymphocyte # 2.84 X10^3/ul (4.0); Lymphocyte % 16.6 % (19-41); Mean Corp Hgb Conc 30.5 g/gl (32-36); Mean Corpuscular Hgb 26.3 pg (27.0-32.0); Mean Corpuscular Volume 86.1 fL (81-99); Mean Platelet Vol. 9.5 fl (6.2-12.0); Monocyte# 1.34 X10^3/uL; Monocyte% 7.9 % (0-10); Neutrophil % 66.8 % (47-70); Platelet Count 428 K/mm3 (150-450); RBC Distribution Width SD 47.6 fl (35.1-43.9); Red Blood Count 4.03 M/mm3 (4.2-5.4); White Blood Count 17.1 K/mm3 (4.4-11.0)
[2017-06-04 08:49] LABS: POSITIVE COUNT NO; POSITIVE DIFFERENTIAL NO; POSITIVE MORPHOLOGY NO
[2017-06-04] MEDS: Ferrous Gluconate 325 MG Tablet PO ×2 (09:19→16:57)
[2017-06-04 09:25] LABS: ALB/GLOB Ratio 0.6 RATIO (0.9-2.4); AST(SGOT) 11 U/L (15-37); Alanine Aminotransfer ALT/SGPT 10 U/L (13-56); Albumin, Serum 1.9 g/dL (3.2-5.0); Alkaline Phosphatase 144 U/L (45-117); Anion Gap 10 (5-15); BUN 11 mg/dL (7-18); BUN/Creat Ratio 10.1 RATIO (10-20); Calcium,Total 8.1 mg/dL (8.5-10.1); Chloride 102 mmol/L (98-107); Creatinine, Serum 1.09 mg/dL (0.55-1.02); EST Glomerular Filtration Rate 51 mL/min (>60); Est Glom Filt Rate - Afr Amer 62 mL/min (>60); Estimated Creatinine Clearance 31.47 ml/min; Globulin 3.3 g/dL (2.2-4.2); Glucose 154 mg/dL (74-106); Potassium 3.6 mmol/L (3.5-5.1); Protein, Total 5.2 g/dL (6.4-8.2); Sodium Level 137 mmol/L (136-145)
[2017-06-04] MEDS: Atorvastatin Calcium 40 MG Tablet PO (21:05)
[2017-06-04] MEDS: Metoprolol Tartrate 50 MG Tablet PO (21:06)
[2017-06-05] VITALS (7 sets, daily range): BP systolic 122–147; BP diastolic 59–86; PULSE 73–91; RESP 18–20; TEMP 36.6–37.3; O2SAT 93–98
[2017-06-05] MEDS: Acetaminophen 325 MG Tablet 650 MG PO ×3 (03:30→16:16)
[2017-06-05 04:43] LABS: ALB/GLOB Ratio 0.6 RATIO (0.9-2.4); AST(SGOT) 6 U/L (15-37); Alanine Aminotransfer ALT/SGPT 8 U/L (13-56); Albumin, Serum 1.8 g/dL (3.2-5.0); Alkaline Phosphatase 122 U/L (45-117); Anion Gap 7 (5-15); BUN 10 mg/dL (7-18); BUN/Creat Ratio 11.4 RATIO (10-20); Calcium,Total 7.8 mg/dL (8.5-10.1); Chloride 103 mmol/L (98-107); Creatinine, Serum 0.88 mg/dL (0.55-1.02); EST Glomerular Filtration Rate 66 mL/min (>60); Est Glom Filt Rate - Afr Amer 79 mL/min (>60); Estimated Creatinine Clearance 38.98 ml/min; Globulin 2.9 g/dL (2.2-4.2); Glucose 107 mg/dL (74-106); Protein, Total 4.7 g/dL (6.4-8.2); Sodium Level 137 mmol/L (136-145)
[2017-06-05 04:55] LABS: Absolute Lymphocyte Count 1.77 X10^3/ul (0.83-4.51); Absolute Neutrophil Count 12.8 X10^3/uL (2.0-7.7); Basophil# 0.03 X10^3/uL; Basophil% 0.2 % (0-1); Eosinophil# 0.57 X10^3/uL; Eosinophils% 3.4 % (0-5); Hemoglobin 9.6 g/dl (12.0-15.0); Lymphocyte # 1.77 X10^3/ul (4.0); Lymphocyte % 10.6 % (19-41); Mean Corpuscular Hgb 25.9 pg (27.0-32.0); Mean Corpuscular Volume 83.8 fL (81-99); Mean Platelet Vol. 9.6 fl (6.2-12.0); Monocyte# 1.45 X10^3/uL; Monocyte% 8.7 % (0-10); Neutrophil # 12.82 X10^3/uL (2.7-7.7); Neutrophil % 76.7 % (47-70); Platelet Count 411 K/mm3 (150-450); RBC Distribution Width CV 14.9 % (11.6-14.6); White Blood Count 16.7 K/mm3 (4.4-11.0)
[2017-06-05 04:57] LABS: POSITIVE COUNT NO; POSITIVE DIFFERENTIAL NO; POSITIVE MORPHOLOGY NO
--- NOTE | 2017-06-05 08:14 | PCM.PN.HOSP ---
Patient Problems: Active and Suspected Problems Acute hypoxic respiratory failure (Acute) Headache and neck pain (Acute) Leukocytosis (Acute) Subjective: The patient is an 82 y/o F w/ PMHx: CAD s/p NSTEMI, History of Breast CA, Chronic Atrial Fibrillation, HTN, HLD, Chronic normocytic anemia (9-10 baseline) who presents to the [facility] ED on 06/02/17 with generalized weakness x 2-3 weeks. Serial Falls, Weakness, Debility, Unclear specific etiology, leukocytosis upon admission, evaluation ongoing for possible etiology, CT head and CT neck without acute findings, PT, OT, CM for discharge planning with plan once clinically appropriate for discharge to home with home health therapies. SNF declined. Will plan discharge to home, likely 06/06/17 AM with home therapies. Admission CBC w/ WBC 18.1 with L shift, afebrile upon presentation, UA not marked, UCx, Bld Cx pending and shoulder result later today or early 06/06/17 AM, CXR and follow CTPA secondary to mild hypoxia in the ED unremarkable, only findings was GB US w/ mild gallbladder wall thickening and cholelithiasis. HIDA scan obtained, unremarkable, rules out acute cholecystitis, given no clear etiology for leukocytosis and noted to have remained afebrile, discontinued zosyn therapy. ID following and panorex jaw secondary to sore gumline obtained as possible etiology, noted normal appearing. Continued leukocytosis, 06/05/18 CBC w/ WBC 16.7, still w/ L shift, remains afebrile, unclear etiology, awaiting Bld Cx and re-assessment per ID but given no source and clinically improved and stable would plan discharge to home if ID amenable with Hem/Onc evaluation. Chronic Normocytic Anemia, unclear specific etiology, admission Hgb 11.1, baseline 9-10, 06/05/ Hgb 9.6, Fe panel, ferritin obtained consistent with Fe deficiency anemia. Added Fe supplementation. Guiac obtained and negative. Incidental Ascending Thoracic Aortic Aneurysmal Dilation w/ CTPA obtained upon presentation, 45 mm aneurysmal dilation ascending thoracic aorta noted, monitor outpatient. Patient with no acute events overnight per self and per nursing report. She states she did have mildly increased cough and attributed this to aerosol therapies which she has now been refusing. She states otherwise no nausea, emesis, recurrent abdominal pain and tolerating diet. Discussed labs this morning and noted still has a leukocytosis but given current presentation as long as blood cultures returned negative plan for discharge to home with follow-up with heme oncology for further assessment. Expect blood cultures to return this evening therefore plan discharge early in the morning if appropriate. Patient denies fevers, chills, nausea, emesis, abdominal pain, chest pain or dyspnea. Objective: Physical Examination: General: awake, alert, oriented x 3 and cooperative, seated upright in bed, NAD, notes doing well. Skin: normal color, turgor, no icterus, cyanosis. HEENT: AT/NC, EOMI, PERRLA, MMM. Lungs: Diminished bases, mild effort, no rales, ronchi or wheezing. Heart: Regular rate and rhythm; no gallop, rub audible, SM. Abdomen: soft, NTTP, ND, normal BS. Extremities: no cyanosis, clubbing, or edema. Neurological: patient awake, alert, oriented x 3; cognitive function intact; pupils equally reactive to light and accomodation; cranial nerves II-XII grossly normal, moving all 4 extremities, no focal deficits, strength improved, mildly to moderately globally decreased. Psychiatric: affect appears normal, no acute evidence of depressive or anxiety feelings. Vitals/I&O's: Vital Signs Temp Pulse Resp BP Pulse Ox 98.9 F 86 20 H 125/63 H 93 06/05/17 02:43 06/05/17 02:43 06/05/17 02:43 06/05/17 02:43 06/05/17 02:43 Oxygen Flow Rate 2 Oxygen Delivery Method Nasal Cannula Weight: 146 lb 9.613 oz Body Mass Index (BMI) 26.8 Intake and Output for Last 24 Hours 06/03/17 06/04/17 06/05/17 23:59 23:59 23:59 Intake Total 1174 / 1174 1080 / 1080 360 / 360 Output Total 200 / 200 Balance 974 / 974 1080 / 1080 360 / 360 Microbiology Past 72 Hours 06/03/17 19:15 Stool Stool Occult Blood (DUY) - Final Laboratory Results 06/04/17 08:40: WBC 17.1 H, RBC 4.03 L, Hgb 10.6 L, Hct 34.7 L, MCV 86.1, MCH 26.3 L, MCHC 30.5 L, RDW 15.0 H, RDW Differential 47.6 H, Plt Count 428, MPV 9.5, Immature Gran % (Auto) 0.400, Neut % (Auto) 66.8, Lymph % (Auto) 16.6 L, [place] % (Auto) 7.9, Eos % (Auto) 8.0 H, Baso % (Auto) 0.3, Absolute Neuts (auto) 11.4 H, Absolute Lymphs (auto) 2.84, Total Counted Not Reportable 06/04/17 08:40: Sodium 137, Potassium 3.6, Chloride 102, Carbon Dioxide 25.0, Anion Gap 10, BUN 11, Creatinine 1.09 H, Estim Creat Clear Calc 31.47, Est GFR (MDRD) Af Amer 62, Est GFR (MDRD) Non-Af 51 L, BUN/Creatinine Ratio 10.1, Glucose 154 H, Calcium 8.1 L, Total Bilirubin 0.40, AST 11 L, ALT 10 L, Alkaline Phosphatase 144 H, Total Protein 5.2 L, Albumin 1.9 L, Globulin 3.3, Albumin/Globulin Ratio 0.6 L 06/05/17 04:08: WBC 16.7 H, RBC 3.70 L, Hgb 9.6 L, Hct 31.0 L, MCV 83.8, MCH 25.9 L, MCHC 31.0 L, RDW 14.9 H, RDW Differential 46.0 H, Plt Count 411, MPV 9.6, Immature Gran % (Auto) 0.400, Neut % (Auto) 76.7 H, Lymph % (Auto) 10.6 L, [place] % (Auto) 8.7, Eos % (Auto) 3.4, Baso % (Auto) 0.2, Absolute Neuts (auto) 12.8 H, Absolute Lymphs (auto) 1.77, Total Counted Not Reportable 06/05/17 04:08: Sodium 137, Potassium 4.0, Chloride 103, Carbon Dioxide 27.0, Anion Gap 7, BUN 10, Creatinine 0.88, Estim Creat Clear Calc 38.98, Est GFR (MDRD) Af Amer 79, Est GFR (MDRD) Non-Af 66, BUN/Creatinine Ratio 11.4, Glucose 107 H, Calcium 7.8 L, Total Bilirubin 0.50, AST 6 L, ALT 8 L, Alkaline Phosphatase 122 H, Total Protein 4.7 L, Albumin 1.8 L, Globulin 2.9, Albumin/Globulin Ratio 0.6 L Current Medications Acetaminophen (Tylenol) 650 mg PO Q4H PRN PRN PRN Reason: fEVER/MILD PAIN Last Admin: 06/05/17 03:30 Dose: 650 mg Al Hydroxide/Mg Hydroxide (Mylanta Ii) 30 ml PO Q6H PRN PRN PRN Reason: Gastric burning Last Admin: 06/04/17 02:19 Dose: 30 ml Albuterol Sulfate (Ventolin Aerosols) 2.5 mg INHALATION Q2H PRN PRN PRN Reason: dyspnea, wheezing Amlodipine Besylate (Norvasc) 5 mg PO DAILY [facility] Last Admin: 06/04/17 07:55 Dose: Not Given Aspirin (Aspirin, Baby) 81 mg PO DAILY@0800 [facility] Last Admin: 06/04/17 07:53 Dose: 81 mg Atorvastatin Calcium (Lipitor) 40 mg PO QHS [facility] Last Admin: 06/04/17 21:05 Dose: 40 mg Enoxaparin Sodium (Lovenox) 40 mg SC DAILY@1000 [facility] Last Admin: 06/04/17 07:54 Dose: 40 mg Ferrous Gluconate (Ferrous Gluconate) 325 mg PO BIDCM [facility] Last Admin: 06/04/17 16:57 Dose: 325 mg Gabapentin (Neurontin) 300 mg PO TIDCM [facility] Last Admin: 06/04/17 16:57 Dose: 300 mg Guaifenesin (Robitussin) 10 ml PO Q6H PRN PRN PRN Reason: SORE THROAT Magnesium Hydroxide (Milk Of Magnesia) 30 ml PO DAILY PRN PRN PRN Reason: Constipation Metoprolol Tartrate (Lopressor (Beta Murray)) 50 mg PO BID [facility] Last Admin: 06/04/17 21:06 Dose: 50 mg Ondansetron HCl (Zofran) 4 mg IV Q8H PRN PRN PRN Reason: NAUSEA Oxycodone HCl (Oxyir) 5 mg PO Q4H PRN PRN PRN Reason: SEVERE PAIN (6-10/10) Pantoprazole Sodium (Protonix) 40 mg PO BID [facility] Last Admin: 06/04/17 21:05 Dose: 40 mg Promethazine HCl (Phenergan (Ll)) 12.5 mg IV Q6H PRN PRN PRN Reason: NAUSEA/VOMITING Sodium Chloride () 5 - 30 ml IV UD PRN PRN Reason: SALINE FLUSH Last Admin: 06/03/17 21:04 Dose: 10 ml Assessment/Plan Active and Suspected Problems Acute hypoxic respiratory failure (Acute) Headache and neck pain (Acute) Leukocytosis (Acute) The patient is an 82 y/o F w/ PMHx: CAD s/p NSTEMI, History of Breast CA, Chronic Atrial Fibrillation, HTN, HLD, Chronic normocytic anemia (9-10 baseline) who presents to the [facility] ED on 06/02/17 with generalized weakness x 2-3 weeks. (1) Serial Falls, Weakness, Debility: Unclear specific etiology, leukocytosis upon admission, evaluation ongoing for possible etiology, continue work-up, fall precautions, CT head and CT neck without acute findings, PT, OT, CM for discharge planning with plan once clinically appropriate for discharge to home with home health therapies. SNF declined. Will plan discharge to home, likely 06/06/17 AM with home therapies. (2) Leukocytosis, Unclear Etiology: Admission CBC w/ WBC 18.1 with L shift, afebrile upon presentation, UA not marked, UCx, Bld Cx pending and shoulder result later today or early 06/06/17 AM, CXR and follow CTPA secondary to mild hypoxia in the ED unremarkable, only findings was GB US w/ mild gallbladder wall thickening and cholelithiasis. HIDA scan obtained, unremarkable, rules out acute cholecystitis, given no clear etiology for leukocytosis and noted to have remained afebrile, discontinued zosyn therapy. ID following and panorex jaw secondary to sore gumline obtained as possible etiology, noted normal appearing. Continued leukocytosis, 06/05/18 CBC w/ WBC 16.7, still w/ L shift, remains afebrile, unclear etiology, awaiting Bld Cx and re-assessment per ID but given no source and clinically improved and stable would plan discharge to home if ID amenable with Hem/Onc evaluation. (3) Cholelithiasis: Surgery evaluation performed, HIDA scan ruled out acute cholecystitis, not a candidate secondary to prior ? brain aneurysm noted at OSH evaluation and currently no indicated. Initially on zosyn, discontinued, amenable per ID given these findings. (4) Hyperglycemia w/ Pre-Diabetes Mellitus type II Status: Admission glucose and prior noted to be serially elevated, HgBA1c 6.4%, encouraged improved diet and lifestyle changes with repeat HgBA1c with PCP. (5) Hypoxia, DOES NOT HAVE Acute Hypoxic Respiratory Failure: Noted to have mild hypoxic in the ED, noted during prior admission as well but resolved with O2 needs, maintained on oxygen with wean to room air, ECHO 12/22/16 w/ EF 65%, stage I diastolic dysfunction, mild MV insufficiency, trivial TV insufficiency, RVSP 25 mmHg, mild aortic stenosis, stable appearing since echo prior to this 2013. Unclear etiology, initiated PRN albuterol, duonebs, but complained of worsened coughing, duonebs held. Patient may benefit from outpatient PFTs. CXR, CTPA without acute etiology. Resolved. (6) Right Neck Strain: Ongoing for several months-year per her report. ID consulted and no marked concern as etiology for elevated WBC, remains afebrile. CT Neck without acute finding, no rigidity, continue fall precautions and improved during admission. Continue PT, OT, compress as needed, PRN tylenol. (7) Chronic Normocytic Anemia: Unclear specific etiology, admission Hgb 11.1, baseline 9-10, 2/4/ Hgb 9.6, Fe panel, ferritin obtained consistent with Fe deficiency anemia. Added Fe supplementation. Guiac obtained and negative. (8) Incidental Ascending Thoracic Aortic Aneurysmal Dilation: CTPA obtained upon presentation, 45 mm aneurysmal dilation ascending thoracic aorta noted, monitor outpatient. (9) Chronic Atrial Fibrillation: Maintain on asa, metoprolol decreased given fall history w/ unclear usage of possible midodrine w/ hold parameters. Given age and fall history not appropriate anticoagulation candidate. (10) CAD: Hx NSTEMI, maintain on asa, statin, metoprolol decreased w/ hold parameters. (11) Hypertension: Continue home regimen including Norvasc, metoprolol decreased with hold parameters, PRN hydralazine. (12) Hyperlipidemia: Continue home statin regimen. (13) Known Pulmonary Nodules: CTPA w/ 3.8 mm right middle lobe nodule, right 14 mm lower lobe nonpalpable, stable lingular nodule. Continue to follow outpatient. (14) DVT Prophylaxis: SCDs, lovenox. (15) CODE status: DNR-CCA, no intubation. Code Visit Inpatient E&M: 71882 Subs Hosp L2
--- NOTE | 2017-06-05 08:19 | PN_ITS ---
Patient Problems: Active and Suspected Problems Acute hypoxic respiratory failure (Acute) Headache and neck pain (Acute) Leukocytosis (Acute) Subjective: The patient is an 82 y/o F w/ PMHx: CAD s/p NSTEMI, History of Breast CA, Chronic Atrial Fibrillation, HTN, HLD, Chronic normocytic anemia (9-10 baseline ) who presents to the [facility] ED on 06/02/17 with generalized weakness x 2-3 weeks. Serial Falls, Weakness, Debility, Unclear specific etiology, leukocytosis upon admission, evaluation ongoing for possible etiology, CT head and CT neck without acute findings, PT, OT, CM for discharge planning with plan once clinically appropriate for discharge to home with home health therapies. SNF declined. Will plan discharge to home, likely 06/06/17 AM with home therapies. Admission CBC w/ WBC 18.1 with L shift, afebrile upon presentation, UA not marked, UCx, Bld Cx pending and shoulder result later today or early 06/06/17 AM, CXR and follow CTPA secondary to mild hypoxia in the ED unremarkable, only findings was GB US w/ mild gallbladder wall thickening and cholelithiasis. HIDA scan obtained, unremarkable, rules out acute cholecystitis, given no clear etiology for leukocytosis and noted to have remained afebrile, discontinued zosyn therapy. ID following and panorex jaw secondary to sore gumline obtained as possible etiology, noted normal appearing. Continued leukocytosis, 06/05/18 CBC w/ WBC 16.7, still w/ L shift, remains afebrile, unclear etiology, awaiting Bld Cx and re-assessment per ID but given no source and clinically improved and stable would plan discharge to home if ID amenable with Hem/Onc evaluation. Chronic Normocytic Anemia, unclear specific etiology, admission Hgb 11.1, baseline 9-10, 06/05/ Hgb 9.6, Fe panel, ferritin obtained consistent with Fe deficiency anemia. Added Fe supplementation. Guiac obtained and negative. Incidental Ascending Thoracic Aortic Aneurysmal Dilation w/ CTPA obtained upon presentation, 45 mm aneurysmal dilation ascending thoracic aorta noted, monitor outpatient. Patient with no acute events overnight per self and per nursing report. She states she did have mildly increased cough and attributed this to aerosol therapies which she has now been refusing. She states otherwise no nausea, emesis, recurrent abdominal pain and tolerating diet. Discussed labs this morning and noted still has a leukocytosis but given current presentation as long as blood cultures returned negative plan for discharge to home with follow- up with heme oncology for further assessment. Expect blood cultures to return this evening therefore plan discharge early in the morning if appropriate. Patient denies fevers, chills, nausea, emesis, abdominal pain, chest pain or dyspnea. Objective: Physical Examination: General: awake, alert, oriented x 3 and cooperative, seated upright in bed, NAD , notes doing well. Skin: normal color, turgor, no icterus, cyanosis. HEENT: AT/NC, EOMI, PERRLA, MMM. Lungs: Diminished bases, mild effort, no rales, ronchi or wheezing. Heart: Regular rate and rhythm; no gallop, rub audible, SM. Abdomen: soft, NTTP, ND, normal BS. Extremities: no cyanosis, clubbing, or edema. Neurological: patient awake, alert, oriented x 3; cognitive function intact; pupils equally reactive to light and accomodation; cranial nerves II-XII grossly normal, moving all 4 extremities, no focal deficits, strength improved, mildly to moderately globally decreased. Psychiatric: affect appears normal, no acute evidence of depressive or anxiety feelings. Vitals/I&O's: Vital Signs Temp Pulse Resp BP Pulse Ox 98.9 F 86 20 H 125/63 H 93 06/05/17 02:43 06/05/17 02:43 06/05/17 02:43 06/05/17 02:43 06/05/17 02:43 Oxygen Flow Rate 2 Oxygen Delivery Method Nasal Cannula Weight: 146 lb 9.613 oz Body Mass Index (BMI) 26.8 Intake and Output for Last 24 Hours 06/03/17 06/04/17 06/05/17 23:59 23:59 23:59 Intake Total 1174 / 1174 1080 / 1080 360 / 360 Output Total 200 / 200 Balance 974 / 974 1080 / 1080 360 / 360 Microbiology Past 72 Hours 06/03/17 19:15 Stool Stool Occult Blood (DUY) - Final Laboratory Results 06/04/17 08:40: WBC 17.1 H, RBC 4.03 L, Hgb 10.6 L, Hct 34.7 L, MCV 86.1, MCH 26.3 L, MCHC 30.5 L, RDW 15.0 H, RDW Differential 47.6 H, Plt Count 428, MPV 9.5 , Immature Gran % (Auto) 0.400, Neut % (Auto) 66.8, Lymph % (Auto) 16.6 L, [place] % (Auto) 7.9, Eos % (Auto) 8.0 H, Baso % (Auto) 0.3, Absolute Neuts (auto) 11.4 H, Absolute Lymphs (auto) 2.84, Total Counted Not Reportable 06/04/17 08:40: Sodium 137, Potassium 3.6, Chloride 102, Carbon Dioxide 25.0, Anion Gap 10, BUN 11, Creatinine 1.09 H, Estim Creat Clear Calc 31.47, Est GFR ( MDRD) Af Amer 62, Est GFR (MDRD) Non-Af 51 L, BUN/Creatinine Ratio 10.1, Glucose 154 H, Calcium 8.1 L, Total Bilirubin 0.40, AST 11 L, ALT 10 L, Alkaline Phosphatase 144 H, Total Protein 5.2 L, Albumin 1.9 L, Globulin 3.3, Albumin/Globulin Ratio 0.6 L 06/05/17 04:08: WBC 16.7 H, RBC 3.70 L, Hgb 9.6 L, Hct 31.0 L, MCV 83.8, MCH 25.9 L, MCHC 31.0 L, RDW 14.9 H, RDW Differential 46.0 H, Plt Count 411, MPV 9.6 , Immature Gran % (Auto) 0.400, Neut % (Auto) 76.7 H, Lymph % (Auto) 10.6 L, [place] % (Auto) 8.7, Eos % (Auto) 3.4, Baso % (Auto) 0.2, Absolute Neuts (auto) 12.8 H, Absolute Lymphs (auto) 1.77, Total Counted Not Reportable 06/05/17 04:08: Sodium 137, Potassium 4.0, Chloride 103, Carbon Dioxide 27.0, Anion Gap 7, BUN 10, Creatinine 0.88, Estim Creat Clear Calc 38.98, Est GFR ( MDRD) Af Amer 79, Est GFR (MDRD) Non-Af 66, BUN/Creatinine Ratio 11.4, Glucose 107 H, Calcium 7.8 L, Total Bilirubin 0.50, AST 6 L, ALT 8 L, Alkaline Phosphatase 122 H, Total Protein 4.7 L, Albumin 1.8 L, Globulin 2.9, Albumin/ Globulin Ratio 0.6 L Current Medications Acetaminophen (Tylenol) 650 mg PO Q4H PRN PRN PRN Reason: fEVER/MILD PAIN Last Admin: 06/05/17 03:30 Dose: 650 mg Al Hydroxide/Mg Hydroxide (Mylanta Ii) 30 ml PO Q6H PRN PRN PRN Reason: Gastric burning Last Admin: 06/04/17 02:19 Dose: 30 ml Albuterol Sulfate (Ventolin Aerosols) 2.5 mg INHALATION Q2H PRN PRN PRN Reason: dyspnea, wheezing Amlodipine Besylate (Norvasc) 5 mg PO DAILY [facility] Last Admin: 06/04/17 07:55 Dose: Not Given Aspirin (Aspirin, Baby) 81 mg PO DAILY@0800 [facility] Last Admin: 06/04/17 07:53 Dose: 81 mg Atorvastatin Calcium (Lipitor) 40 mg PO QHS [facility] Last Admin: 06/04/17 21:05 Dose: 40 mg Enoxaparin Sodium (Lovenox) 40 mg SC DAILY@1000 [facility] Last Admin: 06/04/17 07:54 Dose: 40 mg Ferrous Gluconate (Ferrous Gluconate) 325 mg PO BIDCM [facility] Last Admin: 06/04/17 16:57 Dose: 325 mg Gabapentin (Neurontin) 300 mg PO TIDCM [facility] Last Admin: 06/04/17 16:57 Dose: 300 mg Guaifenesin (Robitussin) 10 ml PO Q6H PRN PRN PRN Reason: SORE THROAT Magnesium Hydroxide (Milk Of Magnesia) 30 ml PO DAILY PRN PRN PRN Reason: Constipation Metoprolol Tartrate (Lopressor (Beta Murray)) 50 mg PO BID [facility] Last Admin: 06/04/17 21:06 Dose: 50 mg Ondansetron HCl (Zofran) 4 mg IV Q8H PRN PRN PRN Reason: NAUSEA Oxycodone HCl (Oxyir) 5 mg PO Q4H PRN PRN PRN Reason: SEVERE PAIN (6-10/10) Pantoprazole Sodium (Protonix) 40 mg PO BID [facility] Last Admin: 06/04/17 21:05 Dose: 40 mg Promethazine HCl (Phenergan (Ll)) 12.5 mg IV Q6H PRN PRN PRN Reason: NAUSEA/VOMITING Sodium Chloride () 5 - 30 ml IV UD PRN PRN Reason: SALINE FLUSH Last Admin: 06/03/17 21:04 Dose: 10 ml Assessment/Plan Active and Suspected Problems Acute hypoxic respiratory failure (Acute) Headache and neck pain (Acute) Leukocytosis (Acute) The patient is an 82 y/o F w/ PMHx: CAD s/p NSTEMI, History of Breast CA, Chronic Atrial Fibrillation, HTN, HLD, Chronic normocytic anemia (9-10 baseline ) who presents to the [facility] ED on 06/02/17 with generalized weakness x 2-3 weeks. (1) Serial Falls, Weakness, Debility: Unclear specific etiology, leukocytosis upon admission, evaluation ongoing for possible etiology, continue work-up, fall precautions, CT head and CT neck without acute findings, PT, OT, CM for discharge planning with plan once clinically appropriate for discharge to home with home health therapies. SNF declined. Will plan discharge to home, likely 06/06/17 AM with home therapies. (2) Leukocytosis, Unclear Etiology: Admission CBC w/ WBC 18.1 with L shift, afebrile upon presentation, UA not marked, UCx, Bld Cx pending and shoulder result later today or early 06/06/17 AM, CXR and follow CTPA secondary to mild hypoxia in the ED unremarkable, only findings was GB US w/ mild gallbladder wall thickening and cholelithiasis. HIDA scan obtained, unremarkable, rules out acute cholecystitis, given no clear etiology for leukocytosis and noted to have remained afebrile, discontinued zosyn therapy. ID following and panorex jaw secondary to sore gumline obtained as possible etiology, noted normal appearing. Continued leukocytosis, 06/05/18 CBC w/ WBC 16.7, still w/ L shift, remains afebrile, unclear etiology, awaiting Bld Cx and re-assessment per ID but given no source and clinically improved and stable would plan discharge to home if ID amenable with Hem/Onc evaluation. (3) Cholelithiasis: Surgery evaluation performed, HIDA scan ruled out acute cholecystitis, not a candidate secondary to prior ? brain aneurysm noted at OSH evaluation and currently no indicated. Initially on zosyn, discontinued, amenable per ID given these findings. (4) Hyperglycemia w/ Pre-Diabetes Mellitus type II Status: Admission glucose and prior noted to be serially elevated, HgBA1c 6.4%, encouraged improved diet and lifestyle changes with repeat HgBA1c with PCP. (5) Hypoxia, DOES NOT HAVE Acute Hypoxic Respiratory Failure: Noted to have mild hypoxic in the ED, noted during prior admission as well but resolved with O2 needs, maintained on oxygen with wean to room air, ECHO 12/22/16 w/ EF 65%, stage I diastolic dysfunction, mild MV insufficiency, trivial TV insufficiency, RVSP 25 mmHg, mild aortic stenosis, stable appearing since echo prior to this 2013. Unclear etiology, initiated PRN albuterol, duonebs, but complained of worsened coughing, duonebs held. Patient may benefit from outpatient PFTs. CXR, CTPA without acute etiology. Resolved. (6) Right Neck Strain: Ongoing for several months-year per her report. ID consulted and no marked concern as etiology for elevated WBC, remains afebrile. CT Neck without acute finding, no rigidity, continue fall precautions and improved during admission. Continue PT, OT, compress as needed, PRN tylenol. (7) Chronic Normocytic Anemia: Unclear specific etiology, admission Hgb 11.1, baseline 9-10, 2/4/ Hgb 9.6, Fe panel, ferritin obtained consistent with Fe deficiency anemia. Added Fe supplementation. Guiac obtained and negative. (8) Incidental Ascending Thoracic Aortic Aneurysmal Dilation: CTPA obtained upon presentation, 45 mm aneurysmal dilation ascending thoracic aorta noted, monitor outpatient. (9) Chronic Atrial Fibrillation: Maintain on asa, metoprolol decreased given fall history w/ unclear usage of possible midodrine w/ hold parameters. Given age and fall history not appropriate anticoagulation candidate. (10) CAD: Hx NSTEMI, maintain on asa, statin, metoprolol decreased w/ hold parameters. (11) Hypertension: Continue home regimen including Norvasc, metoprolol decreased with hold parameters, PRN hydralazine. (12) Hyperlipidemia: Continue home statin regimen. (13) Known Pulmonary Nodules: CTPA w/ 3.8 mm right middle lobe nodule, right 14 mm lower lobe nonpalpable, stable lingular nodule. Continue to follow outpatient. (14) DVT Prophylaxis: SCDs, lovenox. (15) CODE status: DNR-CCA, no intubation. Code Visit Inpatient E&M: 92970 Subs Hosp L2
[2017-06-05] MEDS: Gabapentin 300 MG Capsule PO ×3 (08:36→18:24)
[2017-06-05] MEDS: Metoprolol Tartrate 50 MG Tablet PO ×2 (08:36→22:52)
[2017-06-05] MEDS: Ferrous Gluconate 325 MG Tablet PO ×2 (08:36→18:24)
[2017-06-05] MEDS: Pantoprazole Sodium 40 MG Tablet PO ×2 (08:36→22:51)
[2017-06-05] MEDS: amLODIPine 5 MG Tablet PO (08:37)
[2017-06-05] MEDS: Aspirin 81 MG TAB.CHEW PO (08:37)
[2017-06-05] MEDS: Enoxaparin 40 MG/0.4 ML Syringe SC (08:38)
--- NOTE | 2017-06-05 12:40 | NURSING ---
Pt sleeping. Awakened. Had refused lunch for [employer], but after encouragement for this nurse, was agreeable and ordered grilled cheese and tomato soup., Pt also encouraged to get oob and ambulate, sit in chair. Has been napping all morning. Physical Therapy came in and ready to work with pt.
[2017-06-05] MEDS: 0.9% NaCl Peripheral Flush Adult/Peds IV ×3 (13:05→22:52)
[2017-06-05] MEDS: Ondansetron 4 MG/2 ML Vial IV (13:05)
[2017-06-05] MEDS: Atorvastatin Calcium 40 MG Tablet PO (22:51)
[2017-06-06] VITALS (7 sets, daily range): BP systolic 112–129; BP diastolic 55–63; PULSE 64–95; RESP 18–20; TEMP 36.7–37.3; O2SAT 92–97
[2017-06-06] MEDS: Ondansetron 4 MG/2 ML Vial IV (04:32)
[2017-06-06] MEDS: 0.9% NaCl Peripheral Flush Adult/Peds IV ×2 (04:32→22:22)
[2017-06-06] MEDS: Mag Hydrox/Al Hydrox/Simeth 30 ML UDC PO ×2 (04:36→11:36)
[2017-06-06 06:21] LABS: Absolute Lymphocyte Count 1.45 X10^3/ul (0.83-4.51); Absolute Neutrophil Count 9.9 X10^3/uL (2.0-7.7); Basophil# 0.02 X10^3/uL; Basophil% 0.1 % (0-1); Eosinophil# 1.15 X10^3/uL; Eosinophils% 8.2 % (0-5); Hematocrit 31.5 % (37-47); Hemoglobin 9.6 g/dl (12.0-15.0); Lymphocyte # 1.45 X10^3/ul (4.0); Lymphocyte % 10.3 % (19-41); Mean Corp Hgb Conc 30.5 g/gl (32-36); Mean Corpuscular Volume 85.4 fL (81-99); Mean Platelet Vol. 9.4 fl (6.2-12.0); Monocyte# 1.48 X10^3/uL; Monocyte% 10.5 % (0-10); Neutrophil # 9.91 X10^3/uL (2.7-7.7); Neutrophil % 70.5 % (47-70); Platelet Count 395 K/mm3 (150-450); RBC Distribution Width SD 47.3 fl (35.1-43.9); Red Blood Count 3.69 M/mm3 (4.2-5.4); White Blood Count 14.1 K/mm3 (4.4-11.0)
[2017-06-06 06:22] LABS: POSITIVE COUNT NO; POSITIVE DIFFERENTIAL NO; POSITIVE MORPHOLOGY NO
[2017-06-06 06:47] LABS: ALB/GLOB Ratio 0.6 RATIO (0.9-2.4); AST(SGOT) 11 U/L (15-37); Alanine Aminotransfer ALT/SGPT 9 U/L (13-56); Albumin, Serum 1.6 g/dL (3.2-5.0); Alkaline Phosphatase 119 U/L (45-117); Anion Gap 7 (5-15); BUN 10 mg/dL (7-18); BUN/Creat Ratio 10.4 RATIO (10-20); Calcium,Total 7.6 mg/dL (8.5-10.1); Chloride 104 mmol/L (98-107); Creatinine, Serum 0.96 mg/dL (0.55-1.02); EST Glomerular Filtration Rate 59 mL/min (>60); Est Glom Filt Rate - Afr Amer 71 mL/min (>60); Estimated Creatinine Clearance 35.73 ml/min; Globulin 2.9 g/dL (2.2-4.2); Glucose 100 mg/dL (74-106); Potassium 4.2 mmol/L (3.5-5.1); Protein, Total 4.5 g/dL (6.4-8.2); Sodium Level 139 mmol/L (136-145)
[2017-06-06] MEDS: oxyCODONE 5 MG Tablet PO (07:39)
[2017-06-06] MEDS: Aspirin 81 MG TAB.CHEW PO (07:39)
[2017-06-06] MEDS: Gabapentin 300 MG Capsule PO ×3 (07:39→17:14)
[2017-06-06] MEDS: Ferrous Gluconate 325 MG Tablet PO ×2 (07:39→17:14)
--- NOTE | 2017-06-06 08:46 | PCM.DC ---
- Discharge Diagnoses Current Active Problems: Current Active and Chronic Problems Acute hypoxic respiratory failure (Acute) Headache and neck pain (Acute) Leukocytosis (Acute) Reason(s) for Visit for Discharge Instructions: Generalised weakness, recurrent falls You will use the following diet at home:: Cardiac Your food should be the consistency of: Regular Your liquids should be the consistency of: Regular/Thin Discharge Activity: Return to Normal Activity Additional Instructions: Return back to the ED if you develop fever or get worsening of your symptoms. Allergies/Adverse Reactions: Allergies No Known Allergies Allergy (Verified 06/02/17 09:51) Medications to take at Discharge Aspirin [Aspirin, Baby] 81 mg PO DAILY@0800 12/22/16 Gabapentin [Neurontin] 300 mg PO TID 12/22/16 Atorvastatin Calcium 40 mg PO QHS 01/06/17 Amlodipine [Norvasc] 5 mg PO DAILY 06/02/17 Ferrous Gluconate 325 mg PO BIDCM #30 tab 06/06/17 Guaifenesin [Robitussin] 10 ml PO Q6H PRN PRN #1 bottle 06/06/17 Metoprolol Tartrate [Lopressor (beta amalia)] 50 mg PO BID #60 tab 06/06/17 Pantoprazole Sodium [Protonix] 40 mg PO BID #60 tab 06/06/17 The following prescriptions were given: Guaifenesin [Robitussin] 10 ml PO Q6H PRN PRN #1 bottle PRN Reason: SORE THROAT Ferrous Gluconate 325 mg PO BIDCM #30 tab Metoprolol Tartrate [Lopressor (beta amalia)] 50 mg PO BID #60 tab Pantoprazole Sodium [Protonix] 40 mg PO BID #60 tab Orders to be completed after discharge: CBC W/Diff, Automated Time Frame: 1 Week, Location: Laboratory Primary Care Physician: Mino Hearn MD [Primary Care Provider] - Please follow up with your Primary Care Physician in: within 2 weeks Proposed Discharge Date: 06/06/17
--- NOTE | 2017-06-06 08:57 | PCM.DC.SUM ---
Discharge Date and Diagnosis - Problem List Patient Problems: Active and Suspected Problems Acute hypoxic respiratory failure (Acute) Headache and neck pain (Acute) Leukocytosis (Acute) Date of Admission: 06/02/17 Date of Discharge: 06/06/17 - Primary Discharge Diagnosis Active and Suspected Problems Acute hypoxic respiratory failure (Acute) Headache and neck pain (Acute) Leukocytosis (Acute) - Secondary Discharge Diagnosis Chronic Problems Multiple falls (Chronic) Lung nodule seen on imaging study (Chronic) NEEDS WORKUP Anemia (Chronic) THIS WAS NOT WORKED UP DURING HOSPITALIZATION NSTEMI (non-ST elevated myocardial infarction) (Chronic) Atrial fibrillation (Chronic) HTN (hypertension) (Chronic) History of breast cancer (Chronic) Syncope (Chronic) Hospital Course and Treatment Operations: None Summary of Care Provided: The patient is a 82 year old F [] Discharge Activity: Return to Normal Activity Home Medications: Medications to take at Discharge Aspirin [Aspirin, Baby] 81 mg PO DAILY@0800 12/22/16 Gabapentin [Neurontin] 300 mg PO TID 12/22/16 Atorvastatin Calcium 40 mg PO QHS 01/06/17 Amlodipine [Norvasc] 5 mg PO DAILY 06/02/17 Ferrous Gluconate 325 mg PO BIDCM #30 tab 06/06/17 Guaifenesin [Robitussin] 10 ml PO Q6H PRN PRN #1 bottle 06/06/17 Metoprolol Tartrate [Lopressor (beta amalia)] 50 mg PO BID #60 tab 06/06/17 Pantoprazole Sodium [Protonix] 40 mg PO BID #60 tab 06/06/17 Following Prescrptions Were Given to Patient: Guaifenesin [Robitussin] 10 ml PO Q6H PRN PRN #1 bottle PRN Reason: SORE THROAT Ferrous Gluconate 325 mg PO BIDCM #30 tab Metoprolol Tartrate [Lopressor (beta amalia)] 50 mg PO BID #60 tab Pantoprazole Sodium [Protonix] 40 mg PO BID #60 tab Primary Care Physician: Mino Heran MD [Primary Care Provider] - Please follow up with your Primary Care Physician in: within 2 weeks
[2017-06-06] MEDS: amLODIPine 5 MG Tablet PO (09:23)
[2017-06-06] MEDS: Metoprolol Tartrate 50 MG Tablet PO ×2 (09:23→22:18)
[2017-06-06] MEDS: Pantoprazole Sodium 40 MG Tablet PO ×2 (09:24→22:20)
[2017-06-06] MEDS: Enoxaparin 40 MG/0.4 ML Syringe SC (09:24)
--- NOTE | 2017-06-06 12:50 | PCM.PN.HOSP ---
Patient Problems: Active and Suspected Problems Acute hypoxic respiratory failure (Acute) Headache and neck pain (Acute) Leukocytosis (Acute) Subjective: Patient was seen and examined. Was going to be discharged today when it was realized that she has been on 2 L of oxygen since last night. She was evaluated for ambulatory oxygen and found to be saturating 85% on room air. Subsequently patient has been on 94% on less than 1 L of oxygen. No fevers have been noticed in the last 24 hours. Eyes any chest pain or worsening cough or worsening shortness of breath Vitals/I&O's: Vital Signs Temp Pulse Resp BP Pulse Ox 98.9 F 73 18 112/61 94 06/06/17 10:27 06/06/17 10:27 06/06/17 10:27 06/06/17 10:27 06/06/17 10:27 Oxygen Flow Rate 0.5 Oxygen Delivery Method Nasal Cannula Weight: 66.497 kg Body Mass Index (BMI) 26.8 Intake and Output for Last 24 Hours 06/04/17 06/05/17 06/06/17 23:59 23:59 23:59 Intake Total 1080 / 1080 880 / 880 740 / 740 Balance 1080 / 1080 880 / 880 740 / 740 General: Alert, Oriented x3, Cooperative, No apparent distress, - - on 2 L oxygen HEENT: Atraumatic, PERRLA, EOMI, Normocephalic Oral: Moist Mucosa Neck: Supple Lungs: Normal air movement, No wheeze, Diminished Cardiovascular: Regular rate, Regular Rhythm, Normal S1, Normal S2, No murmurs Abdomen: Bowel Sounds Present, Soft, Non Tender, Non-Distended Extremities: No edema Skin: No rashes, No breakdown Musculoskeletal: No Tenderness to Palpation of Joints or Extremities Lymphatic: No Cervical, Supraclavicular, or Inguinal Adenopathy Neurological: Cranial nerves II-XII grossly intact, Neuro grossly intact Psych/Mental Status: Normal Affect, Appropriate Microbiology Past 72 Hours 06/02/17 16:34 Blood Culture (Wb) #2 - Left Hand Blood Culture - Preliminary No growth in 48 hours. 06/02/17 16:54 Blood Culture (Wb) - Anticubital Left Blood Culture - Preliminary No growth in 48 hours. 06/03/17 19:15 Stool Stool Occult Blood (DUY) - Final Laboratory Results 06/06/17 06:00: WBC 14.1 H, RBC 3.69 L, Hgb 9.6 L, Hct 31.5 L, MCV 85.4, MCH 26.0 L, MCHC 30.5 L, RDW 15.0 H, RDW Differential 47.3 H, Plt Count 395, MPV 9.4, Immature Gran % (Auto) 0.400, Neut % (Auto) 70.5 H, Lymph % (Auto) 10.3 L, [place] % (Auto) 10.5 H, Eos % (Auto) 8.2 H, Baso % (Auto) 0.1, Absolute Neuts (auto) 9.9 H, Absolute Lymphs (auto) 1.45, Total Counted Not Reportable 06/06/17 06:00: Sodium 139, Potassium 4.2, Chloride 104, Carbon Dioxide 28.0, Anion Gap 7, BUN 10, Creatinine 0.96, Estim Creat Clear Calc 35.73, Est GFR (MDRD) Af Amer 71, Est GFR (MDRD) Non-Af 59 L, BUN/Creatinine Ratio 10.4, Glucose 100, Calcium 7.6 L, Total Bilirubin 0.40, AST 11 L, ALT 9 L, Alkaline Phosphatase 119 H, Total Protein 4.5 L, Albumin 1.6 L, Globulin 2.9, Albumin/Globulin Ratio 0.6 L Current Medications Acetaminophen (Tylenol) 650 mg PO Q4H PRN PRN PRN Reason: fEVER/MILD PAIN Last Admin: 06/05/17 16:16 Dose: 650 mg Al Hydroxide/Mg Hydroxide (Mylanta Ii) 30 ml PO Q6H PRN PRN PRN Reason: Gastric burning Last Admin: 06/06/17 11:36 Dose: 30 ml Albuterol Sulfate (Ventolin Aerosols) 2.5 mg INHALATION Q2H PRN PRN PRN Reason: dyspnea, wheezing Amlodipine Besylate (Norvasc) 5 mg PO DAILY [facility] Last Admin: 06/06/17 09:23 Dose: 5 mg Aspirin (Aspirin, Baby) 81 mg PO DAILY@0800 [facility] Last Admin: 06/06/17 07:39 Dose: 81 mg Atorvastatin Calcium (Lipitor) 40 mg PO QHS [facility] Last Admin: 06/05/17 22:51 Dose: 40 mg Enoxaparin Sodium (Lovenox) 40 mg SC DAILY@1000 [facility] Last Admin: 06/06/17 09:24 Dose: 40 mg Ferrous Gluconate (Ferrous Gluconate) 325 mg PO BIDCM [facility] Last Admin: 06/06/17 07:39 Dose: 325 mg Gabapentin (Neurontin) 300 mg PO TIDCM [facility] Last Admin: 06/06/17 11:34 Dose: 300 mg Guaifenesin (Robitussin) 10 ml PO Q6H PRN PRN PRN Reason: SORE THROAT Magnesium Hydroxide (Milk Of Magnesia) 30 ml PO DAILY PRN PRN PRN Reason: Constipation Metoprolol Tartrate (Lopressor (Beta Murray)) 50 mg PO BID [facility] Last Admin: 06/06/17 09:23 Dose: 50 mg Ondansetron HCl (Zofran) 4 mg IV Q8H PRN PRN PRN Reason: NAUSEA Last Admin: 06/06/17 04:32 Dose: 4 mg Oxycodone HCl (Oxyir) 5 mg PO Q4H PRN PRN PRN Reason: SEVERE PAIN (6-10/10) Last Admin: 06/06/17 07:39 Dose: 5 mg Pantoprazole Sodium (Protonix) 40 mg PO BID [facility] Last Admin: 06/06/17 09:24 Dose: 40 mg Promethazine HCl (Phenergan (Ll)) 12.5 mg IV Q6H PRN PRN PRN Reason: NAUSEA/VOMITING Last Admin: 06/05/17 18:25 Dose: 12.5 mg Sodium Chloride () 5 - 30 ml IV UD PRN PRN Reason: SALINE FLUSH Last Admin: 06/06/17 04:32 Dose: 10 ml Assessment/Plan Active and Suspected Problems Acute hypoxic respiratory failure (Acute) Headache and neck pain (Acute) Leukocytosis (Acute) 82 y/o F with multiple comorbidities admitted on 06/02/17 with generalized weakness on-going for 2-3 weeks. 1. Recurrent falls, Weakness, Debility, unclear etiology, patient is scheduled for [facility] facility, initially refused, now agrees, discussed with care management, would work on getting patient placed. 2. Acute hypoxic respiratory insufficiency, likely secondary to atelectasis, no fevers are seen, previous chest x-ray were negative, patient seemed to have been hypoxic overnight, ambulatory oxygen showed SPO2 of 85%, patient seemed to be saturating well on less than 1 L of oxygen, will start patient on aggressive incentive spirometer, reassess for ambulatory oxygen tomorrow and possibly discharge to [facility] facility. 3. Leukocytosis, unclear Etiology, workup in this admission has been negative, white cell count seems to be coming down, patient remained afebrile, off antibiotics, ID following, will continue to monitor. 4. Cholelithiasis, negative, general surgery consulted, will continue to monitor 5. Hyperglycemia w/ Pre-Diabetes Mellitus type II [id number] 6.4%,diet and lifestyle changes recommended with repeat HgBA1c with PCP. 6. Chronic Normocytic Anemia, been at 9.6 7. Incidental Ascending Thoracic Aortic Aneurysmal Dilation: CTPA obtained upon presentation, 45 mm aneurysmal dilation ascending thoracic aorta noted,needs follow-up in outpatient. 8. Chronic Atrial Fibrillation, on asa, metoprolol, not on chronic anticoagulation on account of recurrent falls 9. CAD, Hx NSTEMI,on asa, statin, metoprolol 10. Hypertension, on Norvasc, metoprolol, PRN hydralazine. 11. Hyperlipidemia, on statin. 12. Known Pulmonary Nodules, CTPA w/ 3.8 mm right middle lobe nodule, right 14 mm lower lobe nonpalpable, stable lingular nodule. Continue to follow outpatient. 13. DVT Prophylaxis on SCDs, lovenox. 14. CODE status: DNR-CCA, no intubation. Code Visit Inpatient E&M: 86636 Subs Hosp L2
--- NOTE | 2017-06-06 12:56 | PN_ITS ---
Patient Problems: Active and Suspected Problems Acute hypoxic respiratory failure (Acute) Headache and neck pain (Acute) Leukocytosis (Acute) Subjective: Patient was seen and examined. Was going to be discharged today when it was realized that she has been on 2 L of oxygen since last night. She was evaluated for ambulatory oxygen and found to be saturating 85% on room air. Subsequently patient has been on 94% on less than 1 L of oxygen. No fevers have been noticed in the last 24 hours. Eyes any chest pain or worsening cough or worsening shortness of breath Vitals/I&O's: Vital Signs Temp Pulse Resp BP Pulse Ox 98.9 F 73 18 112/61 94 06/06/17 10:27 06/06/17 10:27 06/06/17 10:27 06/06/17 10:27 06/06/17 10:27 Oxygen Flow Rate 0.5 Oxygen Delivery Method Nasal Cannula Weight: 66.497 kg Body Mass Index (BMI) 26.8 Intake and Output for Last 24 Hours 06/04/17 06/05/17 06/06/17 23:59 23:59 23:59 Intake Total 1080 / 1080 880 / 880 740 / 740 Balance 1080 / 1080 880 / 880 740 / 740 General: Alert, Oriented x3, Cooperative, No apparent distress, - - on 2 L oxygen HEENT: Atraumatic, PERRLA, EOMI, Normocephalic Oral: Moist Mucosa Neck: Supple Lungs: Normal air movement, No wheeze, Diminished Cardiovascular: Regular rate, Regular Rhythm, Normal S1, Normal S2, No murmurs Abdomen: Bowel Sounds Present, Soft, Non Tender, Non-Distended Extremities: No edema Skin: No rashes, No breakdown Musculoskeletal: No Tenderness to Palpation of Joints or Extremities Lymphatic: No Cervical, Supraclavicular, or Inguinal Adenopathy Neurological: Cranial nerves II-XII grossly intact, Neuro grossly intact Psych/Mental Status: Normal Affect, Appropriate Microbiology Past 72 Hours 06/02/17 16:34 Blood Culture (Wb) #2 - Left Hand Blood Culture - Preliminary No growth in 48 hours. 06/02/17 16:54 Blood Culture (Wb) - Anticubital Left Blood Culture - Preliminary No growth in 48 hours. 06/03/17 19:15 Stool Stool Occult Blood (DUY) - Final Laboratory Results 06/06/17 06:00: WBC 14.1 H, RBC 3.69 L, Hgb 9.6 L, Hct 31.5 L, MCV 85.4, MCH 26.0 L, MCHC 30.5 L, RDW 15.0 H, RDW Differential 47.3 H, Plt Count 395, MPV 9.4 , Immature Gran % (Auto) 0.400, Neut % (Auto) 70.5 H, Lymph % (Auto) 10.3 L, [place] % (Auto) 10.5 H, Eos % (Auto) 8.2 H, Baso % (Auto) 0.1, Absolute Neuts ( auto) 9.9 H, Absolute Lymphs (auto) 1.45, Total Counted Not Reportable 06/06/17 06:00: Sodium 139, Potassium 4.2, Chloride 104, Carbon Dioxide 28.0, Anion Gap 7, BUN 10, Creatinine 0.96, Estim Creat Clear Calc 35.73, Est GFR ( MDRD) Af Amer 71, Est GFR (MDRD) Non-Af 59 L, BUN/Creatinine Ratio 10.4, Glucose 100, Calcium 7.6 L, Total Bilirubin 0.40, AST 11 L, ALT 9 L, Alkaline Phosphatase 119 H, Total Protein 4.5 L, Albumin 1.6 L, Globulin 2.9, Albumin/ Globulin Ratio 0.6 L Current Medications Acetaminophen (Tylenol) 650 mg PO Q4H PRN PRN PRN Reason: fEVER/MILD PAIN Last Admin: 06/05/17 16:16 Dose: 650 mg Al Hydroxide/Mg Hydroxide (Mylanta Ii) 30 ml PO Q6H PRN PRN PRN Reason: Gastric burning Last Admin: 06/06/17 11:36 Dose: 30 ml Albuterol Sulfate (Ventolin Aerosols) 2.5 mg INHALATION Q2H PRN PRN PRN Reason: dyspnea, wheezing Amlodipine Besylate (Norvasc) 5 mg PO DAILY [facility] Last Admin: 06/06/17 09:23 Dose: 5 mg Aspirin (Aspirin, Baby) 81 mg PO DAILY@0800 [facility] Last Admin: 06/06/17 07:39 Dose: 81 mg Atorvastatin Calcium (Lipitor) 40 mg PO QHS [facility] Last Admin: 06/05/17 22:51 Dose: 40 mg Enoxaparin Sodium (Lovenox) 40 mg SC DAILY@1000 [facility] Last Admin: 06/06/17 09:24 Dose: 40 mg Ferrous Gluconate (Ferrous Gluconate) 325 mg PO BIDCM [facility] Last Admin: 06/06/17 07:39 Dose: 325 mg Gabapentin (Neurontin) 300 mg PO TIDCM [facility] Last Admin: 06/06/17 11:34 Dose: 300 mg Guaifenesin (Robitussin) 10 ml PO Q6H PRN PRN PRN Reason: SORE THROAT Magnesium Hydroxide (Milk Of Magnesia) 30 ml PO DAILY PRN PRN PRN Reason: Constipation Metoprolol Tartrate (Lopressor (Beta Murray)) 50 mg PO BID [facility] Last Admin: 06/06/17 09:23 Dose: 50 mg Ondansetron HCl (Zofran) 4 mg IV Q8H PRN PRN PRN Reason: NAUSEA Last Admin: 06/06/17 04:32 Dose: 4 mg Oxycodone HCl (Oxyir) 5 mg PO Q4H PRN PRN PRN Reason: SEVERE PAIN (6-10/10) Last Admin: 06/06/17 07:39 Dose: 5 mg Pantoprazole Sodium (Protonix) 40 mg PO BID [facility] Last Admin: 06/06/17 09:24 Dose: 40 mg Promethazine HCl (Phenergan (Ll)) 12.5 mg IV Q6H PRN PRN PRN Reason: NAUSEA/VOMITING Last Admin: 06/05/17 18:25 Dose: 12.5 mg Sodium Chloride () 5 - 30 ml IV UD PRN PRN Reason: SALINE FLUSH Last Admin: 06/06/17 04:32 Dose: 10 ml Assessment/Plan Active and Suspected Problems Acute hypoxic respiratory failure (Acute) Headache and neck pain (Acute) Leukocytosis (Acute) 82 y/o F with multiple comorbidities admitted on 06/02/17 with generalized weakness on-going for 2-3 weeks. 1. Recurrent falls, Weakness, Debility, unclear etiology, patient is scheduled for residential facility, initially refused, now agrees, discussed with care management, would work on getting patient placed. 2. Acute hypoxic respiratory insufficiency, likely secondary to atelectasis, no fevers are seen, previous chest x-ray were negative, patient seemed to have been hypoxic overnight, ambulatory oxygen showed SPO2 of 85%, patient seemed to be saturating well on less than 1 L of oxygen, will start patient on aggressive incentive spirometer, reassess for ambulatory oxygen tomorrow and possibly discharge to residential facility. 3. Leukocytosis, unclear Etiology, workup in this admission has been negative, white cell count seems to be coming down, patient remained afebrile, off antibiotics, ID following, will continue to monitor. 4. Cholelithiasis, negative, general surgery consulted, will continue to monitor 5. Hyperglycemia w/ Pre-Diabetes Mellitus type II [id number] 6.4%,diet and lifestyle changes recommended with repeat HgBA1c with PCP. 6. Chronic Normocytic Anemia, been at 9.6 7. Incidental Ascending Thoracic Aortic Aneurysmal Dilation: CTPA obtained upon presentation, 45 mm aneurysmal dilation ascending thoracic aorta noted,needs follow-up in outpatient. 8. Chronic Atrial Fibrillation, on asa, metoprolol, not on chronic anticoagulation on account of recurrent falls 9. CAD, Hx NSTEMI,on asa, statin, metoprolol 10. Hypertension, on Norvasc, metoprolol, PRN hydralazine. 11. Hyperlipidemia, on statin. 12. Known Pulmonary Nodules, CTPA w/ 3.8 mm right middle lobe nodule, right 14 mm lower lobe nonpalpable, stable lingular nodule. Continue to follow outpatient. 13. DVT Prophylaxis on SCDs, lovenox. 14. CODE status: DNR-CCA, no intubation. Code Visit Inpatient E&M: 51996 Subs Hosp L2
[2017-06-06] MEDS: Acetaminophen 325 MG Tablet 650 MG PO (13:33)
--- NOTE | 2017-06-06 13:58 | CASEMGMT ---
Intro role of CM to patient and her daughter. They had questions re: insurance coverage of this stay and dc disposition. discussed MCR deductible for benefit period and as pt has secondary coverage, they can see if this would cover deductible. Let pt know payment is under DR[employer] designation. Discussed OT's evaluation that pt ambulated 25 feet CG, but had Loss of balance while standing @ toilet. Pt did agree she is still unsteady. O2 saturation during therapy decreased to 85% on room air. Recommendation is pt would benefit from further therapy. -Pt and daughter are agreeable to SNF on dc. Discussed MCR coverage of 100% first 20 days. Pt would like referral faxed to [facility]. Message with left with CHARLIE Roman re: update above . Riley HERMAN BSN ACM
--- NOTE | 2017-06-06 14:17 | CASEMGMT ---
Social Work Note Plan was for home with home health care at discharge, but due to events throughout the day the physician is recommending SNF. BATSHEVA Feliciano - in to speak with pt and family regarding payment and initiated conversation regarding placement. Notified this lead technical writer that pt would like a referral made to [facility]. Placed call to Nelly at [facility] who confirms that they have bed availability and would review a referral. Initial referral faxed and will await a return phone call with determination. Updated BATSHEVA Feliciano. SW to continue to follow and assist with discharge planning. Plan: SNF pending acceptance. JOSE M ZamoraW
--- NOTE | 2017-06-06 16:28 | CASEMGMT ---
Social Work Note Call from Nelly stating that she can accept the pt once medically stable. Would like SW to reiterate to the pt that she has to participate in therapy and that they do not have any long-term beds there. She also asks for pt's insurance cards, which registration did not copy into her file. Face to face with the pt and update that she has to participate in therapy and that their discharge plan for her would be home. Pt states she is definitely going home and expresses understanding of importance of participating in therapy for insurance to continue to cover. Asked pt if she had her insurance cards with her and she states that her daughter, Riddhi, has them, but will be in tomorrow. Provides verbal permission for SW to contact Riddhi to request that she bring in a copy of the pt's cards. Placed call to Riddhi at [phone] and requested that she bring the pt's insurance card tomorrow for SW to copy so that it can be scanned into pt's file. Riddhi states that she will. Call Nelly back and update to the above information. SW to continue to follow and assist with discharge planning. Plan: [facility] for rehabilitation. Clarita Lawler, JOSE M MARTINEZ
[2017-06-06] MEDS: Atorvastatin Calcium 40 MG Tablet PO (22:20)
[2017-06-07] VITALS (7 sets, daily range): BP systolic 102–121; BP diastolic 45–71; PULSE 67–84; RESP 18–20; TEMP 36.1–38.6; O2SAT 90–98
[2017-06-07] MEDS: oxyCODONE 5 MG Tablet PO (02:14)
[2017-06-07] MEDS: Acetaminophen 325 MG Tablet 650 MG PO ×2 (02:37→13:42)
--- NOTE | 2017-06-07 03:43 | NURSING ---
Bladder scanned patient of 598, assisted patient up to bathroom with walker. Pt became very weak and started to lose her balance. Nurse guided patient to sit on toilet. Pt stated she still felt weak, pulled call button in bathroom and Yuniel assisted patient to rolling chair and then back to bed. BP 102/47, HR 71, respirations 18, sats 93% on 3l.
--- NOTE | 2017-06-07 05:34 | NURSING ---
Called lab and asked that morning be drawn and processing be expeditited.
--- NOTE | 2017-06-07 05:47 | RAD_ITS ---
STUDY: X-RAY CHEST REASON FOR EXAM: Female, 82 years old. Fever and low oxygen stats TECHNIQUE: Frontal and lateral views of the chest. COMPARISON: June 02, 2017, chest x-ray and CT chest FINDINGS: Minor scarring right upper lobe. There are areas of hyperinflation. Possible atelectasis in the left base and mild blunting of the left costophrenic angle. There is borderline cardiomegaly. Prominent right paratracheal soft tissue consistent with ectatic vessel on CT.. Normal visualized pulmonary arteries. There is atherosclerotic calcification of the aortic arch with tortuosity. Aortic aneurysm as seen on CT not appreciated. Obscured thoracic spine. There is degenerative osteoarthritis of the bilateral shoulders. There is no demonstrated abnormality of the visualized soft tissue structures of the upper abdomen. RAD/Chest PA and Lateral IMPRESSION: Atelectasis, possible mild effusion left base, not seen on the most recent exam. Stable scarring in the right upper lobe, areas of hyperinflation, borderline cardiac size, ectasia of vessels. Aortic aneurysm as seen on CT not appreciated. Electronically Signed: Casie Michel MD at 6:39 EST , Service support ,
[2017-06-07 06:16] LABS: Absolute Neutrophil Count 13.8 X10^3/uL (2.0-7.7); Basophil# 0.03 X10^3/uL; Basophil% 0.2 % (0-1); Eosinophil# 0.43 X10^3/uL; Eosinophils% 2.5 % (0-5); Hematocrit 30.3 % (37-47); Hemoglobin 9.1 g/dl (12.0-15.0); Lymphocyte % 8.6 % (19-41); Mean Corpuscular Hgb 26.1 pg (27.0-32.0); Mean Corpuscular Volume 87.1 fL (81-99); Mean Platelet Vol. 9.6 fl (6.2-12.0); Monocyte# 1.68 X10^3/uL; Monocyte% 9.6 % (0-10); Neutrophil # 13.75 X10^3/uL (2.7-7.7); Neutrophil % 78.8 % (47-70); Platelet Count 418 K/mm3 (150-450); RBC Distribution Width CV 14.8 % (11.6-14.6); RBC Distribution Width SD 45.7 fl (35.1-43.9); Red Blood Count 3.48 M/mm3 (4.2-5.4); White Blood Count 17.4 K/mm3 (4.4-11.0)
[2017-06-07 06:22] LABS: Differential Indicated SCAN CRITERIA MET; POSITIVE COUNT NO; POSITIVE DIFFERENTIAL YES; POSITIVE MORPHOLOGY NO
[2017-06-07 06:34] LABS: ALB/GLOB Ratio 0.5 RATIO (0.9-2.4); AST(SGOT) 9 U/L (15-37); Alanine Aminotransfer ALT/SGPT 8 U/L (13-56); Albumin, Serum 1.6 g/dL (3.2-5.0); Alkaline Phosphatase 120 U/L (45-117); Anion Gap 6 (5-15); BUN 13 mg/dL (7-18); BUN/Creat Ratio 11.7 RATIO (10-20); Calcium,Total 7.6 mg/dL (8.5-10.1); Chloride 100 mmol/L (98-107); Creatinine, Serum 1.11 mg/dL (0.55-1.02); EST Glomerular Filtration Rate 50 mL/min (>60); Est Glom Filt Rate - Afr Amer 61 mL/min (>60); Estimated Creatinine Clearance 30.91 ml/min; Glucose 124 mg/dL (74-106); Potassium 4.6 mmol/L (3.5-5.1); Protein, Total 4.6 g/dL (6.4-8.2); Sodium Level 135 mmol/L (136-145)
[2017-06-07 06:36] LABS: Differential Comment SCANNED
[2017-06-07 07:42] LABS: Bacteria 0 SEEN /hpf (None Seen); Mucous, Urine 0 SEEN /hpf (<or=2+)
[2017-06-07 07:56] LABS: Color, Urine Yellow (Yellow); Glucose, Dipstick Normal (Normal); Ketone-Dipstick Negative (Negative); Leukocyte Esterase-Dipstick 25 /ul (Negative); Nitrite-Dipstick Negative (Negative); Occult Blood-Urine 25 /ul (Negative); Protein-Dipstick 30 mg/dl (Negative); Urine Bilirubin Dipstick Negative (Negative); Urine Clarity Sl. Cloudy (Clear); Urine Urobilinogen Normal (Normal)
[2017-06-07 08:01] LABS: Red Blood Cells-Urine 0-5 SEEN /hpf (0-5); Squamous Epithelial Cells - UA 0-5 SEEN /hpf (5-10); White Blood Cells 0-5 SEEN /hpf (0-5)
[2017-06-07] MEDS: amLODIPine 5 MG Tablet PO (08:29)
[2017-06-07] MEDS: Gabapentin 300 MG Capsule PO ×2 (08:29→11:41)
[2017-06-07] MEDS: Metoprolol Tartrate 50 MG Tablet PO (08:29)
[2017-06-07] MEDS: Aspirin 81 MG TAB.CHEW PO (08:29)
[2017-06-07] MEDS: Ferrous Gluconate 325 MG Tablet PO (08:30)
[2017-06-07] MEDS: Pantoprazole Sodium 40 MG Tablet PO (08:30)
[2017-06-07] MEDS: Enoxaparin 40 MG/0.4 ML Syringe SC (08:30)
--- NOTE | 2017-06-07 10:30 | PN.ID_ITS ---
Patient Problems: Active and Suspected Problems Acute hypoxic respiratory failure (Acute) Headache and neck pain (Acute) Leukocytosis (Acute) Subjective: Increased hypoxia yesterday, fever overnight, but relatively asymptomatic. No abd pain, no n/v/d, no dysuria. Mild sharp R anterior chest pain. Frustrated about being stuck in bed. - Physical Exam General: Alert, Cooperative, No apparent distress Lungs: Clear to auscultation, Diminished - in bases Cardiovascular: Regular rate, Regular Rhythm Abdomen: Soft, Non Tender, Non-Distended Extremities: No edema Skin: No rashes Vital Signs Temp Pulse Resp BP Pulse Ox 97.4 F L 67 18 104/54 L 98 06/07/17 08:13 06/07/17 08:29 06/07/17 08:13 06/07/17 08:13 06/07/17 08:13 Oxygen Flow Rate 2 Oxygen Delivery Method Nasal Cannula Weight: 66.497 kg Body Mass Index (BMI) 26.8 Intake and Output for Last 24 Hours 06/05/17 06/06/17 06/07/17 23:59 23:59 23:59 Intake Total 880 / 880 1220 / 1220 160 / 160 Output Total 650 / 650 Balance 880 / 880 1220 / 1220 -490 / -490 Microbiology Past 72 Hours 06/02/17 16:34 Blood Culture - Preliminary Blood Culture (Wb) #2 - Left Hand No growth in 48 hours. 06/02/17 16:54 Blood Culture - Preliminary Blood Culture (Wb) - Anticubital Left No growth in 48 hours. Laboratory Tests Past 24 Hrs 06/07/17 06/07/17 06/07/17 05:55 05:55 07:15 WBC 17.4 H RBC 3.48 L Hgb 9.1 L Hct 30.3 L MCV 87.1 MCH 26.1 L MCHC 30.0 L RDW 14.8 H RDW Differential 45.7 H Plt Count 418 MPV 9.6 Immature Gran % (Auto) 0.300 Neut % (Auto) 78.8 H Lymph % (Auto) 8.6 L Dare % (Auto) 9.6 Eos % (Auto) 2.5 Baso % (Auto) 0.2 Absolute Neuts (auto) 13.8 H Absolute Lymphs (auto) 1.50 Total Counted Not Reportable Differential Comment SCANNED Diff Path Review May foll Sodium 135 L Potassium 4.6 Chloride 100 Carbon Dioxide 29.0 Anion Gap 6 BUN 13 Creatinine 1.11 H Estim Creat Clear Calc 30.91 Est GFR (MDRD) Af Amer 61 Est GFR (MDRD) Non-Af 50 L BUN/Creatinine Ratio 11.7 Glucose 124 H Calcium 7.6 L Total Bilirubin 0.40 AST 9 L ALT 8 L Alkaline Phosphatase 120 H Total Protein 4.6 L Albumin 1.6 L Globulin 3.0 Albumin/Globulin Ratio 0.5 L Urine Color Yellow Urine Clarity Sl. Cloudy Urine pH 6.0 Ur Specific [place] 1.010 Urine Protein 30 H Urine Glucose (UA) Normal Urine Ketones Negative Urine Occult Blood 25 H Urine Nitrite Negative Urine Bilirubin Negative Urine Urobilinogen Normal Ur Leukocyte Esterase 25 H Urine RBC 0-5 SEEN Urine WBC 0-5 SEEN Ur Squamous Epith Cells 0-5 SEEN Urine Bacteria 0 SEEN Urine Mucus 0 SEEN Route of nutrition/ use of supplements: [] Nutritional Intake: [] IV Site: [] Gibbons Catheter: [] - Assessment/Plan Antibiotics: [] Assessment/Plan: [] Active and Suspected Problems Acute hypoxic respiratory failure (Acute) Headache and neck pain (Acute) Leukocytosis - had been improving slowly until today. Appears well clinically and exam is benign. Fever and hypoxia with no new infiltrate on cxr seems most consistent with atelectasis, would continue to work on using IS and getting her out of bed. Cxs are pending. will follow.
--- NOTE | 2017-06-07 10:41 | PCM.TXEXTCAR ---
- Diet 06/03/17 15:04 Diet: Cardiac/Low Cholesterol Is pt able to select menu?: Yes - Routine Orders/Code Status O2 Liters per Minute: 2L/MIN O2 Frequency: Continuous Keep PO Greater than or Equal to (%): 94 - ENCOURAGE AGGRESSIVE USE OF INCENTIVE SPIROMETER Routine Lab Work: CBC - WITHIN 3 DAYS, BMP - WITHIN 3 DAYS Code Status: DNRCC-A - Therapies Physical Therapy: Eval and Treat Occupational Therapy: Eval and Treat - Allergies/Procedures Done in Hospital Allergies/Adverse Reactions: Allergies No Known Allergies Allergy (Verified 06/02/17 09:51) Procedures: None - Type of Care/Length of Stay Estimated LOS: Convalescent Care Less Than 30 days Type of Care Needed: Skilled Rehab Potential: Good Prognosis: Good - Additional Orders/Day of Discharge Day of Discharge: 06/07/17 - Dietary and Speech Recommendations Dietitian Recommendations/Changes: Please weigh patient. - Follow Up Care Primary Care Physician: Mino Hearn MD [Primary Care Provider] - Please follow up with your Primary Care Physician in: within 2 weeks Please Follow Up With: Adam Phillips MD When: WITHIN 2 WEEKS
--- NOTE | 2017-06-07 10:58 | CASEMGMT ---
Social Work Note Convalescent 7000 completed and submitted in the [facility]. Copies on chart and in SNF packet. Faxed Convalescent 7000, discharge instructions and medlist to SNF. Copies on chart and originals in SNF packet. Face to face with the pt to discuss discharge planning and transportation. She states that her daughter does not drive, but if her friend Alice brings her daughter she could transport her. Requests that SW contact her daughter Riddhi to confirm. Placed call to Riddhi and left requesting a return phone call. Notified SNF and RN that we are waiting to hear back from family in regards to transportation. Will continue to follow and assist with discharge planning. Plan: W for rehabilitation. Convalescent 7000 submitted in [facility]. Transportation to be determined. JOSE M ZamoraW
--- NOTE | 2017-06-07 12:45 | CASEMGMT ---
Social Work Note VM from daughter requesting a return phone call. Placed call 3x and phone rang busy and no option to leave a vm. SW to continue to follow and assist. Clarita Lawler, RENTAL CAR FERRY DRIVER DIRECTOR DRUG
[2017-06-07] MEDS: Mag Hydrox/Al Hydrox/Simeth 30 ML UDC PO (13:42)
--- NOTE | 2017-06-07 13:46 | CASEMGMT ---
Social Work Note Face to face with the pt and daughter to discuss transport. Both feel that transportation needs setup. Obtained insurance cards from daughter. Made copies to place on chart and originals given to pt's daughter. Transport setup through [facility] via cot at 14:00-14:10. Notified RN, pt and SNF. Clarita Lawler, RELAY ASSOCIATE, B2B ACCOUNT EXECUTIVE
--- NOTE | 2017-06-07 14:00 | NURSING ---
call placed to [facility] and report given to nursing staff
[2017-06-07 14:52] LABS: Pathologist Review Reviewed
--- NOTE | 2017-06-07 17:05 | PCM.DC.SUM ---
Discharge Date and Diagnosis Date of Admission: 06/02/17 Date of Discharge: 06/07/17 - Primary Discharge Diagnosis Current falls Debility Acute hypoxic respiratory insufficiency secondary to atelectasis Leukocytosis of unclear etiology Cholelithiasis - Secondary Discharge Diagnosis Chronic Problems Multiple falls (Chronic) Lung nodule seen on imaging study (Chronic) NEEDS WORKUP Anemia (Chronic) THIS WAS NOT WORKED UP DURING HOSPITALIZATION NSTEMI (non-ST elevated myocardial infarction) (Chronic) Atrial fibrillation (Chronic) HTN (hypertension) (Chronic) History of breast cancer (Chronic) Syncope (Chronic) Hospital Course and Treatment Imaging Results: Clinical Impression(s) from Imaging Studies Chest X-Ray 06/02/17 10:10 IMPRESSION: Stable examination. No acute abnormality is seen. Electronically Signed: Law Harper MD at 10:47 EST Tel [phone], Service support , Gallbladder Ultrasound 06/02/17 11:24 IMPRESSION: Cholelithiasis. Mild gallbladder wall thickening. Electronically Signed: Law Harper MD at 12:41 EST Tel [phone], Service support , Brain CT 06/02/17 15:22 IMPRESSION: Chronic involutional changes of the brain. There are no acute findings. Electronically Signed: Tyler Christiansen MD at 16:31 EST , Service support , Cervical Spine CT 06/02/17 15:23 IMPRESSION: Degenerative changes of the cervical spine. No acute abnormality of the spine. The thyroid is heterogenous. It contains nodules. This should be further evaluated with ultrasound. This can be performed as an outpatient. Electronically Signed: Tyler Christiansen MD at 16:34 EST , Service support , Chest CTA 06/02/17 15:32 IMPRESSION: No demonstrated pulmonary embolism or arterial dissection. Small pleural effusions. Stable pulmonary nodules. 45 mm aneurysmal dilation of the ascending thoracic aorta. Electronically Signed: Tyler Christiansen MD at 16:40 EST , Service support , Hepatobiliary Scan Nuclear Medicine 06/03/17 08:29 IMPRESSION: 1. Visualization of the gallbladder within 60 minutes post radiopharmaceutical administration excludes acute cholecystitis with 97% certitude. (Wei et al, Nucl Med Evette Jenni Press pg. 35, 1981). 2. There is scintigraphic evidence of duodenal-gastric reflux as described above. Electronically Signed: Rojelio De León DO at 11:54 EST Tel , Service support , Mandible X-Ray 06/03/17 17:08 IMPRESSION: Normal x-ray examination of the mandible. Electronically Signed: Tyler Christiansen MD at 17:45 EST , Service support , Chest X-Ray 06/07/17 05:47 IMPRESSION: Atelectasis, possible mild effusion left base, not seen on the most recent exam. Stable scarring in the right upper lobe, areas of hyperinflation, borderline cardiac size, ectasia of vessels. Aortic aneurysm as seen on CT not appreciated. Electronically Signed: Casie Michel MD at 6:39 EST , Service support , General surgery Operations: None Procedures: None Summary of Care Provided: 82 y/o F with multiple comorbidities admitted on 06/02/17 with generalized weakness on-going for 2-3 weeks. Patient was managed as follows: 1. Recurrent falls, Weakness, Debility, [facility] 2. Acute hypoxic respiratory insufficiency, likely secondary to atelectasis, discharged on oxygen and encouraged on aggressive incentive spirometer 3. Leukocytosis, unclear Etiology, workup in this admission has been negative, infectious disease consulted in this admission, will follow up with them in 2 weeks 4. Cholelithiasis, HIDA scan negative, general surgery consulted in this admission. 5. Hyperglycemia w/ Pre-Diabetes Mellitus type II Status, HgBA1c 6.4%,diet and lifestyle changes recommended with repeat HgBA1c with PCP. 6. Chronic Normocytic Anemia, been at 9.6 7. Incidental Ascending Thoracic Aortic Aneurysmal Dilation, CTPA obtained upon presentation, 45 mm aneurysmal dilation ascending thoracic aorta noted, needs follow-up in outpatient. 8. Chronic Atrial Fibrillation, on asa, metoprolol, not on chronic anticoagulation on account of recurrent falls 9. CAD, Hx NSTEMI,on asa, statin, metoprolol 10. Hypertension, on Norvasc, metoprolol, PRN hydralazine. 11. Hyperlipidemia, on statin. 12. Known Pulmonary Nodules, CTPA w/ 3.8 mm right middle lobe nodule, right 14 mm lower lobe nonpalpable, stable lingular nodule. Follow-up in outpatient. 13. DVT Prophylaxis on SCDs, lovenox. 14. CODE status: DNR-CCA, no intubation. Discharge Activity: Return to Normal Activity Home Medications: Medications to take at Discharge Aspirin [Aspirin, Baby] 81 mg PO DAILY@0800 12/22/16 Gabapentin [Neurontin] 300 mg PO TID 12/22/16 Atorvastatin Calcium 40 mg PO QHS 01/06/17 Amlodipine [Norvasc] 5 mg PO DAILY 06/02/17 Ferrous Gluconate 325 mg PO BIDCM #30 tab 06/06/17 Guaifenesin [Robitussin] 10 ml PO Q6H PRN PRN #1 bottle 06/06/17 Metoprolol Tartrate [Lopressor (beta amalia)] 50 mg PO BID #60 tab 06/06/17 Pantoprazole Sodium [Protonix] 40 mg PO BID #60 tab 06/06/17 Following Prescrptions Were Given to Patient: Guaifenesin [Robitussin] 10 ml PO Q6H PRN PRN #1 bottle PRN Reason: SORE THROAT Ferrous Gluconate 325 mg PO BIDCM #30 tab Metoprolol Tartrate [Lopressor (beta amalia)] 50 mg PO BID #60 tab Pantoprazole Sodium [Protonix] 40 mg PO BID #60 tab Primary Care Physician: Mino Hearn MD [Primary Care Provider] - Please follow up with your Primary Care Physician in: within 2 weeks Please Follow Up With: Adam Phillips MD When: WITHIN 2 WEEKS Disposition: Retirement facility Minutes spent on discharge:: 25 Patient Condition:: Stable Meaningful Use Info Meaningful Use Diagnoses (Choose all that apply): None applicable Code Visit Inpatient E&M: 54456 Disch Hosp
--- NOTE | 2017-06-07 17:09 | DS.PCM_ITS ---
Discharge Date and Diagnosis Date of Admission: 06/02/17 Date of Discharge: 06/07/17 - Primary Discharge Diagnosis Current falls Debility Acute hypoxic respiratory insufficiency secondary to atelectasis Leukocytosis of unclear etiology Cholelithiasis - Secondary Discharge Diagnosis Chronic Problems Multiple falls (Chronic) Lung nodule seen on imaging study (Chronic) NEEDS WORKUP Anemia (Chronic) THIS WAS NOT WORKED UP DURING HOSPITALIZATION NSTEMI (non-ST elevated myocardial infarction) (Chronic) Atrial fibrillation (Chronic) HTN (hypertension) (Chronic) History of breast cancer (Chronic) Syncope (Chronic) Hospital Course and Treatment Imaging Results: Clinical Impression(s) from Imaging Studies Chest X-Ray 06/02/17 10:10 IMPRESSION: Stable examination. No acute abnormality is seen. Electronically Signed: Law Harper MD at 10:47 EST Tel [phone], Service support , Gallbladder Ultrasound 06/02/17 11:24 IMPRESSION: Cholelithiasis. Mild gallbladder wall thickening. Electronically Signed: Law Harper MD at 12:41 EST Tel [phone], Service support , Brain CT 06/02/17 15:22 IMPRESSION: Chronic involutional changes of the brain. There are no acute findings. Electronically Signed: Tyler Christiansen MD at 16:31 EST , Service support , Cervical Spine CT 06/02/17 15:23 IMPRESSION: Degenerative changes of the cervical spine. No acute abnormality of the spine. The thyroid is heterogenous. It contains nodules. This should be further evaluated with ultrasound. This can be performed as an outpatient. Electronically Signed: Tyler Christiansen MD at 16:34 EST , Service support , Chest CTA 06/02/17 15:32 IMPRESSION: No demonstrated pulmonary embolism or arterial dissection. Small pleural effusions. Stable pulmonary nodules. 45 mm aneurysmal dilation of the ascending thoracic aorta. Electronically Signed: Tyler Christiansen MD at 16:40 EST , Service support , Hepatobiliary Scan Nuclear Medicine 06/03/17 08:29 IMPRESSION: 1. Visualization of the gallbladder within 60 minutes post radiopharmaceutical administration excludes acute cholecystitis with 97% certitude. (Wei et al, Nucl Med Evette Jenni Press pg. 35, 1981). 2. There is scintigraphic evidence of duodenal-gastric reflux as described above. Electronically Signed: Rojelio De León DO at 11:54 EST Tel , Service support , Mandible X-Ray 06/03/17 17:08 IMPRESSION: Normal x-ray examination of the mandible. Electronically Signed: Tyler Christiansen MD at 17:45 EST , Service support , Chest X-Ray 06/07/17 05:47 IMPRESSION: Atelectasis, possible mild effusion left base, not seen on the most recent exam. Stable scarring in the right upper lobe, areas of hyperinflation, borderline cardiac size, ectasia of vessels. Aortic aneurysm as seen on CT not appreciated. Electronically Signed: Casie Michel MD at 6:39 EST , Service support , General surgery Operations: None Procedures: None Summary of Care Provided: 82 y/o F with multiple comorbidities admitted on 06/02/17 with generalized weakness on-going for 2-3 weeks. Patient was managed as follows: 1. Recurrent falls, Weakness, Debility, discharged to residential facility 2. Acute hypoxic respiratory insufficiency, likely secondary to atelectasis, discharged on oxygen and encouraged on aggressive incentive spirometer 3. Leukocytosis, unclear Etiology, workup in this admission has been negative, infectious disease consulted in this admission, will follow up with them in 2 weeks 4. Cholelithiasis, HIDA scan negative, general surgery consulted in this admission. 5. Hyperglycemia w/ Pre-Diabetes Mellitus type II Status, HgBA1c 6.4%,diet and lifestyle changes recommended with repeat HgBA1c with PCP. 6. Chronic Normocytic Anemia, been at 9.6 7. Incidental Ascending Thoracic Aortic Aneurysmal Dilation, CTPA obtained upon presentation, 45 mm aneurysmal dilation ascending thoracic aorta noted, needs follow-up in outpatient. 8. Chronic Atrial Fibrillation, on asa, metoprolol, not on chronic anticoagulation on account of recurrent falls 9. CAD, Hx NSTEMI,on asa, statin, metoprolol 10. Hypertension, on Norvasc, metoprolol, PRN hydralazine. 11. Hyperlipidemia, on statin. 12. Known Pulmonary Nodules, CTPA w/ 3.8 mm right middle lobe nodule, right 14 mm lower lobe nonpalpable, stable lingular nodule. Follow-up in outpatient. 13. DVT Prophylaxis on SCDs, lovenox. 14. CODE status: DNR-CCA, no intubation. Discharge Activity: Return to Normal Activity Home Medications: Medications to take at Discharge Aspirin [Aspirin, Baby] 81 mg PO DAILY@0800 12/22/16 Gabapentin [Neurontin] 300 mg PO TID 12/22/16 Atorvastatin Calcium 40 mg PO QHS 01/06/17 Amlodipine [Norvasc] 5 mg PO DAILY 06/02/17 Ferrous Gluconate 325 mg PO BIDCM #30 tab 06/06/17 Guaifenesin [Robitussin] 10 ml PO Q6H PRN PRN #1 bottle 06/06/17 Metoprolol Tartrate [Lopressor (beta amalia)] 50 mg PO BID #60 tab 06/06/17 Pantoprazole Sodium [Protonix] 40 mg PO BID #60 tab 06/06/17 Following Prescrptions Were Given to Patient: Guaifenesin [Robitussin] 10 ml PO Q6H PRN PRN #1 bottle PRN Reason: SORE THROAT Ferrous Gluconate 325 mg PO BIDCM #30 tab Metoprolol Tartrate [Lopressor (beta amalia)] 50 mg PO BID #60 tab Pantoprazole Sodium [Protonix] 40 mg PO BID #60 tab Primary Care Physician: Mino Hearn MD [Primary Care Provider] - Please follow up with your Primary Care Physician in: within 2 weeks Please Follow Up With: Adam Phillips MD When: WITHIN 2 WEEKS Disposition: [facility] facility Minutes spent on discharge:: 25 Patient Condition:: Stable Meaningful Use Info Meaningful Use Diagnoses (Choose all that apply): None applicable Code Visit Inpatient E&M: 42924 Disch Hosp
--- NOTE | 2017-06-09 16:06 | CASEMGMT ---
Gavi from [employer] left a message for this SW in regard to this pt. SW called back, message left letting her know that pt went to [facility]. ORLIN Brody, AIRCRAFT INSTRUMENT TESTER
== END 2017-06-07 14:16 | disposition skilled nursing facility (03) | DRG 948 ==
LOC: ED 10:56 → MS2 14:45
PROVIDERS: Family Medicine; Admitting Provider Internal Medicine; Emergency Provider Emergency Medicine; Family Provider Internal Medicine; PCP Internal Medicine; Visit Provider Internal Medicine
DX: R53.81 Other malaise (principal); I48.2 Chronic atrial fibrillation; S16.1XXA Strain of muscle, fascia and tendon at neck level, initial encounter; D50.9 Iron deficiency anemia, unspecified; D72.829 Elevated white blood cell count, unspecified; J98.11 Atelectasis; R91.8 Other nonspecific abnormal finding of lung field; I25.10 Atherosclerotic heart disease of native coronary artery without angina pectoris; K80.20 Calculus of gallbladder without cholecystitis without obstruction; I10 Essential (primary) hypertension; I25.2 Old myocardial infarction; Z85.3 Personal history of malignant neoplasm of breast; Z79.82 Long term (current) use of aspirin; E78.5 Hyperlipidemia, unspecified; Z66 Do not resuscitate; R29.6 Repeated falls; R73.9 Hyperglycemia, unspecified
CPT/HCPCS: 36415; 70110; 70450; 71045; 71046; 71275; 72125; 76705; 78227; 80048; 80053; 80076; 81001; 82274; 82728; 83036; 83540; 83550; 83605; 83690; 83735; 84443; 84484; 85025; 87040; 87086; 87641; 92526; 93005; 94640; 94762; 97110; 97116; 97162; 97165; 97535; 99285; A9537; P9612; Q9967; A4216; J2405